=== PATIENT | female | born 1960 ===

== ENCOUNTER 2017-08-08 13:18 | Inpatient (IN) | payer MEDICAID ==
[2017-08-08 13:23] VITALS: BMI 44.5
[2017-08-08] MEDS ORDERED: Albuterol-Ipratrop 3 mg / 0.5 (3 ml) UD ONE ×2 (13:40→20:28)
[2017-08-08] MEDS ORDERED: Albuterol-Ipratrop 3 mg / 0.5 (3 ml) UD IH STA (13:43)
[2017-08-08 14:10] LABS: BASO % 0.6 % (0.0-2.0); EOS # 0.1 K/uL (0.0-0.7); EOS % 1.8 % (0.0-4.0); HEMATOCRIT 39.8 % (34.0-47.0); LYMPH % 31.4 % (20.0-40.0); MEAN CELL VOLUME 82.5 fL (81.0-99.0); MEAN CORPUSCULAR HEMOGLOBIN 27.2 pg (27.0-31.0); MEAN PLATELET VOLUME 9.7 fL (7.2-11.7); MONO # 0.4 K/uL (0.0-0.8); MONO % 5.9 % (0.0-10.0); NRBC % 0.1 % (0.0-2.0); RED CELL DISTRIBUTION WIDTH 13.8 % (11.5-14.5); WHITE BLOOD COUNT 6.3 K/uL (4.8-10.8)
[2017-08-08 14:18] LABS: ABG MECHANICAL RATE 14; ARTERIAL BLOOD GAS MODE BiPAP; DRAW SITE RRA
[2017-08-08 14:23] LABS: ALB/GLOB RATIO 1.1 (1.0-2.1); ALKALINE PHOSPHATASE 131 U/L (38-126); ALT/SGPT 80 U/L (9-52); AST/SGOT 27 U/L (14-36); BILIRUBIN,TOTAL 0.7 mg/dL (0.2-1.3); BLOOD UREA NITROGEN 16 mg/dL (7-17); CALCIUM 8.6 mg/dl (8.6-10.4); CARBON DIOXIDE 26 mmol/L (22-30); CHLORIDE 108 mmol/L (98-107); GFR AFRICAN-AMERICAN > 60; GLUCOSE,RANDOM 141 mg/dL (65-105); POTASSIUM 3.2 mmol/L (3.6-5.2); SODIUM 144 mmol/L (132-148); TOTAL PROTEIN 7.5 g/dL (6.3-8.3)
[2017-08-08] MEDS ORDERED: Lactated Ringer's 1,000 ML IVB STA (14:37)
--- NOTE | 2017-08-08 15:02 | RAD ---
PROCEDURE: CHEST RADIOGRAPH, 1 VIEW HISTORY: SOB COMPARISON: Comparison is made to 10/22/2011 FINDINGS: LUNGS: He bibasilar opacities are noted may represent atelectasis. The assessment is suboptimal due to poor inspiratory effort. PLEURA: No pneumothorax or pleural fluid seen. CARDIOVASCULAR: Normal. OSSEOUS STRUCTURES: No significant abnormalities. VISUALIZED UPPER ABDOMEN: Normal. OTHER FINDINGS: None. IMPRESSION: Bibasilar opacities may represent atelectasis.
[2017-08-08] MEDS ORDERED: Lactated Ringer's 1,000 ML ONE (15:29)
--- NOTE | 2017-08-08 15:29 | C.PDOC ---
History Of Present Illness Pt was BIBEMS due to respiratory distress. She was placed on C-PAP and given Duonebs, Solumedrol, Mg and Terbutaline en route. Time Seen by Provider: 08/08/17 13:42 Chief Complaint (Nursing): Shortness Of Breath History Per: Patient, EMS History/Exam Limitations: clinical condition Onset/Duration Of Symptoms: Days (few) Current Symptoms Are (Timing): Worse Current Respiratory Medications: See Home Med List Severity: Severe Associated Symptoms: Productive Cough Reports Recently: Treated By A Physician, Hospitalized Additional History Per: Prior Records Past Medical History Reviewed: Historical Data, Nursing Documentation, Vital Signs Vital Signs: Last Vital Signs Temp 98.8 F 08/08/17 13:23 Pulse 101 H 08/08/17 13:23 Resp 32 H 08/08/17 13:41 BP 151/72 H 08/08/17 13:23 Pulse Ox 97 08/08/17 13:41 - Medical History PMH: Anemia, Anxiety, Arthritis (R-L knee.), Asthma, Atrial Fibrillation, Bronchitis, Cardia Arrhythmia, COPD, Depression, Diverticulitis, Gastritis ( ulcer), GERD, HTN, Pneumonia, Rheumatoid Arthritis Surgical History: Cholecystectomy, (x3) - [facility] Procedures COLONOSCOPY (01/14/15) IMMOBILIZ/WOUND ATTN NEC (09/22/13) INJECT/INFUSE NEC (03/22/14) INTRODUCE OF OTH THERAP SUBST INTO RESP TRACT, VIA OPENING (12/28/15) NEBULIZER THERAPY (01/18/14) Family History: States: Unknown Family Hx - Social History Hx Tobacco Use: Yes Hx Alcohol Use: No Hx Substance Use: No - Immunization History Hx Tetanus Toxoid Vaccination: Yes Hx Influenza Vaccination: Yes Hx Pneumococcal Vaccination: Yes Review Of Systems Constitutional: Positive for: Fever (?) Cardiovascular: Positive for: Chest Pain Respiratory: Positive for: Cough, Shortness of Breath, Sputum, Wheezing. Negative for: Hemoptysis Gastrointestinal: Negative for: Vomiting, Abdominal Pain Musculoskeletal: Negative for: Neck Pain Skin: Negative for: Rash Neurological: Negative for: Weakness, Numbness Physical Exam - Physical Exam Appears: In Acute Distress Skin: Normal Color, Warm, Dry, No Rash Head: Atraumatic, Normacephalic Eye(s): bilateral: PERRL, EOMI Neck: Normal ROM, Supple Cardiovascular: Rhythm Regular Respiratory: Wheezing Gastrointestinal/Abdominal: Soft, No Tenderness Extremity: Normal ROM, No Pedal Edema, No Calf Tenderness Neurological/Psych: Oriented x3, Normal Speech, Normal Motor, Normal Sensation ED Course And Treatment - Laboratory Results Result Diagrams: 08/08/17 14:04 08/08/17 14:04 Lab Interpretation: No Acute Changes ECG: Interpreted By Me, Viewed By Me ECG Rhythm: Sinus Rhythm, Nonspecific Changes ECG Interpretation: No Acute Changes Rate From EC O2 Sat by Pulse Oximetry: 97 Pulse Ox Interpretation: Normal - Radiology CXR: Viewed By Me, Read By Radiologist CXR Interpretation: Yes: No Acute Disease Progress - Interventions Interventions:: Observation, Intravenous fluid, Oxygen - Medications Administered Inhaled nebulized: Anticholinergic, Beta-2 agonist - Data Reviewed Data Reviewed: Lab, Diagnostic imaging, EKG, Old records - Patient Status Patient status: Partially improved - Critical Care Citical Care: Excluding Proc Time Critical Care Time: 45 minutes - Continuity of Care Discussed patient case with:: Patient, ED Nurse, On-call PMD-pt unassigned - Patient Plan Patient Plan: Admission Disposition Discussed With : Elizabeth Arredondo Comment: She accepted pt on hospitalist service. Doctor Will See Patient In The: Hospital Counseled Patient/Family Regarding: Studies Performed, Diagnosis, Smoking Cessation - Disposition Disposition: HOSPITALIZED Disposition Time: 15:32 Condition: FAIR - Clinical Impression Clinical Impression: COPD exacerbation
[2017-08-08] MEDS ORDERED: Potassium Chloride 20 mEq ER Tab PO STA (16:49)
[2017-08-08] MEDS ORDERED: MethylPREDNISolone 40 mg Vial IVP STA (16:49)
[2017-08-08 16:58] LABS: RBC URINE 4 /hpf (0-3); URINE BACTERIA RARE (<OCC); URINE BILIRUBIN NEGATIVE (NEGATIVE); URINE BLOOD NEGATIVE (NEGATIVE); URINE COLOR Yellow (YELLOW); URINE GLUCOSE (UA) 1+ mg/dL (Normal); URINE KETONE NEGATIVE (NEGATIVE); URINE LEUKOCYTE ESTERASE NEG Leu/uL (Negative); URINE PROTEIN NEGATIVE (NEGATIVE); URINE UROBILINOGEN NORMAL mg/dL (0.2-1.0); WBC URINE 4 /hpf (0-5)
--- NOTE | 2017-08-08 17:16 | CP.PCM.HP ---
<Mireille Coy - Last Filed: 08/08/17 17:05> History of Present Illness - History of Present Illness History of Present Illness: CC: "I feel like I can't breath" HPI: Patient is a 56 year old female with PMHx of anxiety, COPD, migraines, arthritis and depression presenting for shortness of breath, wheezing and coughing for the past 4-5 days, worsening today. Patient reports associated chest tightness. Patient also has bilateral knee pain. She is very concerned about getting percocet for this. Patient says she takes percocet at home. Patient was admitted to [facility] at the end of June twice. She was discharged with prenidsone, Omnicef and zithromax for 7 days. Patient finished these medications and is now feeling worse. Patient says she has been itnubated 5 times in the past, once in the past year. Patient denies fever, chills, chest pain, palpitations, abdominal pain, nausea, vomiting, diarrhea, constipation, dysuria. PMD: none (patient was discharged from her PMD's care) PMHx: as above PSHx: Left knee surgery, 3 C sections, cholecystectomy, ovarian cystectomy, colonoscopy and endoscopy in 2014 Social Hx: quit tobacco 4 days before which she smoked 1/3 ppd for over 30 years , denies ETOH, denies drug use, lives alone, on disability Family Hx: reviewed, no findings relevant to current condition Allergies:Cipro and PCN - itchiness Present on Admission - Present on Admission Any Indicators Present on Admission: No Review of Systems - Constitutional Constitutional: absent: Chills, Fever - EENT Eyes: absent: Blurred Vision Ears: absent: Dizziness - Cardiovascular Cardiovascular: Dyspnea on Exertion. absent: Chest Pain, Palpitations - Respiratory Respiratory: Cough, Dyspnea, Wheezing - Gastrointestinal Gastrointestinal: absent: Abdominal Pain, Constipation, Diarrhea, Nausea, Vomiting - Genitourinary Genitourinary: absent: Dysuria - Integumentary Integumentary: absent: Dry Skin - Neurological Neurological: absent: Dizziness, Headaches - Psychiatric Psychiatric: Anxiety - Endocrine Endocrine: absent: Fatigue, Palpitations - Hematologic/Lymphatic Hematologic: absent: Easy Bleeding, Easy Bruising Past Patient History - Tetanus Immunizations Tetanus Immunization: Unknown - Past Medical History & Family History Past Medical History?: Yes Past Family History: Reviewed and not pertinent - Past Social History Smoking Status: Light Smoker < 10 Cigarettes Daily Occupation: [employer] Alcohol: None Drugs: Denies Home Situation {Lives}: Alone - CARDIAC Hx Atrial Fibrillation: Yes Hx Cardia Arrhythmia: Yes Hx Hypertension: Yes - PULMONARY Hx Asthma: Yes Hx Bronchitis: Yes Hx Chronic Obstructive Pulmonary Disease (COPD): Yes Hx Pneumonia: Yes - NEUROLOGICAL Hx Neurological Disorder: No - HEENT Hx HEENT Problems: No - RENAL Hx Chronic Kidney Disease: No - ENDOCRINE/METABOLIC Hx Endocrine Disorders: No - HEMATOLOGICAL/ONCOLOGICAL Hx Anemia: Yes - INTEGUMENTARY Hx Dermatological Problems: No - MUSCULOSKELETAL/RHEUMATOLOGICAL Hx Arthritis: Yes (R-L knee.) Hx Rheumatoid Arthritis: Yes - GASTROINTESTINAL Hx Diverticulitis: Yes Hx Gastritis: Yes (ulcer) - GENITOURINARY/GYNECOLOGICAL Hx Genitourinary Disorders: No - PSYCHIATRIC Hx Anxiety: Yes Hx Depression: Yes Hx Substance Use: No - SURGICAL HISTORY Hx Cholecystectomy: Yes - ANESTHESIA Hx Anesthesia: Yes Hx Anesthesia Reactions: No Hx Malignant Hyperthermia: No Meds Allergies/Adverse Reactions: Allergies Allergy/AdvReac Type Severity Reaction Status Date / Time ciprofloxacin [From Cipro] Allergy RASH Verified 07/19/17 16:36 ciprofloxacin HCl Allergy RASH Verified 07/19/17 16:36 [From Cipro] Penicillins Allergy RASH Verified 07/19/17 16:36 Physical Exam - Constitutional Appears: Non-toxic, No Acute Distress - Head Exam Head Exam: NORMAL INSPECTION - Eye Exam Eye Exam: EOMI - ENT Exam ENT Exam: Mucous Membranes Moist - Respiratory Exam Respiratory Exam: Wheezes, NORMAL BREATHING PATTERN. absent: Clear to Auscultation Bilateral, Rales, Rhonchi Additional comments: on BiPAP - Cardiovascular Exam Cardiovascular Exam: REGULAR RHYTHM, +S1, +S2. absent: Gallop, Rubs, Systolic Murmur - GI/Abdominal Exam GI & Abdominal Exam: Normal Bowel Sounds, Soft. absent: Distended, Firm, Tenderness - Extremities Exam Extremities exam: Negative for: pedal edema - Neurological Exam Neurological exam: Alert, Oriented x3 - Psychiatric Exam Psychiatric exam: Normal Affect, Normal Mood - Skin Skin Exam: Normal Color, Warm Results - Vital Signs Recent Vital Signs: Last Vital Signs Temp 98.8 F 08/08/17 13:23 Pulse 89 08/08/17 16:14 Resp 18 08/08/17 16:14 BP 136/76 08/08/17 16:14 Pulse Ox 100 08/08/17 16:14 - Labs Result Diagrams: 08/08/17 14:04 08/08/17 14:04 Labs: Laboratory Results - last 24 hr 08/08/17 08/08/17 08/08/17 14:04 14:04 14:15 WBC 6.3 RBC 4.83 Hgb 13.1 Hct 39.8 MCV 82.5 MCH 27.2 MCHC 33.0 RDW 13.8 Plt Count 121 L MPV 9.7 Neut % (Auto) 60.3 Lymph % (Auto) 31.4 [place] % (Auto) 5.9 Eos % (Auto) 1.8 Baso % (Auto) 0.6 Neut # 3.8 Lymph # 2.0 [place] # 0.4 Eos # 0.1 Baso # 0.0 Differential Comment Puncture Site Rra pCO2 35 pO2 106 H HCO3 25.0 ABG pH 7.44 ABG Total CO2 24.9 ABG O2 Saturation 99.5 H ABG Base Excess 0.1 Ramon Test Na ABG Potassium 3.0 L A-a O2 Difference 135.0 Respiratory Index 1.3 Glucose 158 H Lactate 1.5 Vent Mode Bipap Mechanical Rate 14 FiO2 40.0 Inspiratory BiPAP 14 Expiratory BiPAP 7 Sodium 144 144.0 Potassium 3.2 L Chloride 108 H 111.0 H Carbon Dioxide 26 Anion Gap 13 BUN 16 Creatinine 0.6 L Est GFR ( Amer) > 60 Est GFR (Non-Af Amer) > 60 Random Glucose 141 H Calcium 8.6 Total Bilirubin 0.7 AST 27 ALT 80 H Alkaline Phosphatase 131 H D Troponin I < 0.0120 NT-Pro-B Natriuret Pep 63.9 Total Protein 7.5 Albumin 3.9 Globulin 3.6 Albumin/Globulin Ratio 1.1 Arterial Blood Potassium 3.0 L Urine Color Urine Clarity Urine pH Ur Specific [place] Urine Protein Urine Glucose (UA) Urine Ketones Urine Blood Urine Nitrate Urine Bilirubin Urine Urobilinogen Ur Leukocyte Esterase Urine WBC (Auto) Urine RBC (Auto) Ur Squamous Epith Cells Urine Bacteria Urine Opiates Screen Urine Methadone Screen Ur Barbiturates Screen Ur Phencyclidine Scrn Ur Amphetamines Screen U Benzodiazepines Scrn U Oth Cocaine Metabols U Cannabinoids Screen 08/08/17 08/08/17 16:39 16:39 WBC RBC Hgb Hct MCV MCH MCHC RDW Plt Count MPV Neut % (Auto) Lymph % (Auto) [place] % (Auto) Eos % (Auto) Baso % (Auto) Neut # Lymph # [place] # Eos # Baso # Differential Comment Puncture Site pCO2 pO2 HCO3 ABG pH ABG Total CO2 ABG O2 Saturation ABG Base Excess Ramon Test ABG Potassium A-a O2 Difference Respiratory Index Glucose Lactate Vent Mode Mechanical Rate FiO2 Inspiratory BiPAP Expiratory BiPAP Sodium Potassium Chloride Carbon Dioxide Anion Gap BUN Creatinine Est GFR ( Amer) Est GFR (Non-Af Amer) Random Glucose Calcium Total Bilirubin AST ALT Alkaline Phosphatase Troponin I NT-Pro-B Natriuret Pep Total Protein Albumin Globulin Albumin/Globulin Ratio Arterial Blood Potassium Urine Color Yellow Urine Clarity Hazy Urine pH 5.0 Ur Specific [place] 1.026 Urine Protein Negative Urine Glucose (UA) 1+ Urine Ketones Negative Urine Blood Negative Urine Nitrate Negative Urine Bilirubin Negative Urine Urobilinogen Normal Ur Leukocyte Esterase Neg Urine WBC (Auto) 4 Urine RBC (Auto) 4 H Ur Squamous Epith Cells 13 H Urine Bacteria Rare Urine Opiates Screen Positive H Urine Methadone Screen Negative Ur Barbiturates Screen Negative Ur Phencyclidine Scrn Negative Ur Amphetamines Screen Negative U Benzodiazepines Scrn Positive U Oth Cocaine Metabols Negative U Cannabinoids Screen Negative Assessment & Plan - Assessment and Plan (Free Text) Assessment: COPD exacerbation CXR 08/08/17 - bibasilar opacities, possible atelectasis (please see full report ) Solumedrol 40mg IvP Q12 Advair 250/50 INH BID Singulair 10mg PO HS Duonebs 3ml INH RQ4 Pulmonology consult - Dr. Green - f/u recs Telemetry Pneumonia CXR 08/08/17 - bibasilar opacities, possible atelectasis (please see full report ) F/U blood culture F/U sputum cutlure F/U strep, mycoplasma, legionella Zithromax 500mg IVPB daily Arthritis Tramadol 25mg PO Q8 PRN pain Anxiety Cymbalta 60mg PO daily Xanax 0.25mg PO BID PRN anxiety Trazadone 50mg PO HS Seroquel 25mg PO HS Gabapentin 300mg PO HS Migraine Topamax 50mg PO daily Hypokalemia K 3.2 KCl 20mEq PO once F/U in AM Prophylaxis Protonix 40mg PO daily Heparin 5000U SC Q8 SCDs <Gilbert León - Last Filed: 08/08/17 18:36> Results - Vital Signs Recent Vital Signs: Last Vital Signs Temp 98.8 F 08/08/17 13:23 Pulse 89 08/08/17 16:14 Resp 18 08/08/17 16:14 BP 136/76 08/08/17 16:14 Pulse Ox 100 08/08/17 16:14 - Labs Result Diagrams: 08/08/17 14:04 08/08/17 14:04 Labs: Laboratory Results - last 24 hr 08/08/17 08/08/17 08/08/17 14:04 14:04 14:15 WBC 6.3 RBC 4.83 Hgb 13.1 Hct 39.8 MCV 82.5 MCH 27.2 MCHC 33.0 RDW 13.8 Plt Count 121 L MPV 9.7 Neut % (Auto) 60.3 Lymph % (Auto) 31.4 [place] % (Auto) 5.9 Eos % (Auto) 1.8 Baso % (Auto) 0.6 Neut # 3.8 Lymph # 2.0 [place] # 0.4 Eos # 0.1 Baso # 0.0 Differential Comment Puncture Site Rra pCO2 35 pO2 106 H HCO3 25.0 ABG pH 7.44 ABG Total CO2 24.9 ABG O2 Saturation 99.5 H ABG Base Excess 0.1 Ramon Test Na ABG Potassium 3.0 L A-a O2 Difference 135.0 Respiratory Index 1.3 Glucose 158 H Lactate 1.5 Vent Mode Bipap Mechanical Rate 14 FiO2 40.0 Inspiratory BiPAP 14 Expiratory BiPAP 7 Sodium 144 144.0 Potassium 3.2 L Chloride 108 H 111.0 H Carbon Dioxide 26 Anion Gap 13 BUN 16 Creatinine 0.6 L Est GFR ( Amer) > 60 Est GFR (Non-Af Amer) > 60 Random Glucose 141 H Calcium 8.6 Total Bilirubin 0.7 AST 27 ALT 80 H Alkaline Phosphatase 131 H D Troponin I < 0.0120 NT-Pro-B Natriuret Pep 63.9 Total Protein 7.5 Albumin 3.9 Globulin 3.6 Albumin/Globulin Ratio 1.1 Arterial Blood Potassium 3.0 L Urine Color Urine Clarity Urine pH Ur Specific [place] Urine Protein Urine Glucose (UA) Urine Ketones Urine Blood Urine Nitrate Urine Bilirubin Urine Urobilinogen Ur Leukocyte Esterase Urine WBC (Auto) Urine RBC (Auto) Ur Squamous Epith Cells Urine Bacteria Urine Opiates Screen Urine Methadone Screen Ur Barbiturates Screen Ur Phencyclidine Scrn Ur Amphetamines Screen U Benzodiazepines Scrn U Oth Cocaine Metabols U Cannabinoids Screen Ur L.pneumophila Ag 08/08/17 08/08/17 08/08/17 16:39 16:39 17:26 WBC RBC Hgb Hct MCV MCH MCHC RDW Plt Count MPV Neut % (Auto) Lymph % (Auto) [place] % (Auto) Eos % (Auto) Baso % (Auto) Neut # Lymph # [place] # Eos # Baso # Differential Comment Puncture Site pCO2 pO2 HCO3 ABG pH ABG Total CO2 ABG O2 Saturation ABG Base Excess [place]on Test ABG Potassium A-a O2 Difference Respiratory Index Glucose Lactate Vent Mode Mechanical Rate FiO2 Inspiratory BiPAP Expiratory BiPAP Sodium Potassium Chloride Carbon Dioxide Anion Gap BUN Creatinine Est GFR ( Amer) Est GFR (Non-Af Amer) Random Glucose Calcium Total Bilirubin AST ALT Alkaline Phosphatase Troponin I NT-Pro-B Natriuret Pep Total Protein Albumin Globulin Albumin/Globulin Ratio Arterial Blood Potassium Urine Color Yellow Urine Clarity Hazy Urine pH 5.0 Ur Specific [place] 1.026 Urine Protein Negative Urine Glucose (UA) 1+ Urine Ketones Negative Urine Blood Negative Urine Nitrate Negative Urine Bilirubin Negative Urine Urobilinogen Normal Ur Leukocyte Esterase Neg Urine WBC (Auto) 4 Urine RBC (Auto) 4 H Ur Squamous Epith Cells 13 H Urine Bacteria Rare Urine Opiates Screen Positive H Urine Methadone Screen Negative Ur Barbiturates Screen Negative Ur Phencyclidine Scrn Negative Ur Amphetamines Screen Negative U Benzodiazepines Scrn Positive U Oth Cocaine Metabols Negative U Cannabinoids Screen Negative Ur L.pneumophila Ag Negative Attending/Attestation - Attestation I have personally seen and examined this patient.: Yes I have fully participated in the care of the patient.: Yes I have reviewed all pertinent clinical information: Yes Notes (Text): This is a 56 year old female with PMHx of anxiety, COPD, migraines, arthritis and depression presenting for shortness of breath, wheezing and coughing for the past 4-5 days.Recent hospitalization for Exacerbation of Asthma at [facility].D/c on oral antibiotics.Patient state that she was intubated in the past total 5 times.Last one last year.Stae that she stop smoking on exam she is on BIPAP,talking in full sentence.Not in distress,noted cough with wheezing.chest x ray and abg noted Plan-admit her to telemetry IV solumedrol,zithromax and duoneb continue home meds Pulmonary consult 08/08/17 18:35
[2017-08-08] MEDS ORDERED: Potassium Chloride 20 mEq ER Tab PO ONE (17:22)
[2017-08-08] MEDS ORDERED: MethylPREDNISolone 40 mg Vial ONE ×2 (17:23→21:06)
[2017-08-08] MEDS ORDERED: Pantoprazole 40 mg EC Tab PO ONE (17:23)
[2017-08-08] MEDS: Pantoprazole 40 mg EC Tab PO SCH (17:27)
[2017-08-08] MEDS: Tramadol 25 mg PO PRN (17:48)
[2017-08-08] MEDS: Azithromycin 500 MG in Sodium Chloride 0.9% 250 ML IVPB SCH (17:55)
[2017-08-08] MEDS ORDERED: DiphenhydrAMINE 50 mg/ml Inj ONE (20:27)
[2017-08-08] MEDS: Fluticasone-Salmeterol 250-50mcg Diskus INH SCH (20:30)
[2017-08-08] MEDS: Albuterol-Ipratrop 3 mg / 0.5 (3 ml) UD INH SCH ×2 (20:30→23:55)
[2017-08-08] MEDS: MethylPREDNISolone 40 mg Vial IVP SCH (21:25)
[2017-08-09] MEDS ORDERED: DiphenhydrAMINE 50 mg/ml Inj IVP STA (01:09)
[2017-08-09] MEDS: Tramadol 25 mg PO PRN (02:15)
[2017-08-09] MEDS: Albuterol-Ipratrop 3 mg / 0.5 (3 ml) UD INH SCH ×6 (04:50→23:26)
[2017-08-09 06:36] LABS: BASO % 0.4 % (0.0-2.0); HEMATOCRIT 35.9 % (34.0-47.0); LYMPH # 0.4 K/uL (1.0-4.3); LYMPH % 7.7 % (20.0-40.0); MEAN CELL VOLUME 82.5 fL (81.0-99.0); MEAN CORPUSCULAR HEMOGLOBIN 27.4 pg (27.0-31.0); MEAN CORPUSCULAR HGB CONC 33.2 g/dL (33.0-37.0); MEAN PLATELET VOLUME 9.1 fL (7.2-11.7); MONO # 0.1 K/uL (0.0-0.8); MONO % 2.5 % (0.0-10.0); PLATELET COUNT 102 K/uL (130-400); RED CELL DISTRIBUTION WIDTH 13.7 % (11.5-14.5); WHITE BLOOD COUNT 5.3 K/uL (4.8-10.8)
[2017-08-09 07:05] LABS: ALB/GLOB RATIO 1.1 (1.0-2.1); ALKALINE PHOSPHATASE 110 U/L (38-126); ALT/SGPT 60 U/L (9-52); AST/SGOT 19 U/L (14-36); BILIRUBIN,TOTAL 0.4 mg/dL (0.2-1.3); BLOOD UREA NITROGEN 15 mg/dL (7-17); CALCIUM 8.3 mg/dl (8.6-10.4); CARBON DIOXIDE 22 mmol/L (22-30); CHLORIDE 109 mmol/L (98-107); GFR AFRICAN-AMERICAN > 60; GLUCOSE,RANDOM 216 mg/dL (65-105); POTASSIUM 3.8 mmol/L (3.6-5.2); SODIUM 143 mmol/L (132-148); TOTAL PROTEIN 6.6 g/dL (6.3-8.3)
[2017-08-09] MEDS: Fluticasone-Salmeterol 250-50mcg Diskus INH SCH ×2 (07:40→20:16)
[2017-08-09 08:26] LABS: NEUTROPHIL 84 % (50-75); TOTAL CELLS COUNTED 100
[2017-08-09] MEDS ORDERED: Albuterol-Ipratrop 3 mg / 0.5 (3 ml) UD INH PRN (09:07)
[2017-08-09] MEDS: MethylPREDNISolone 40 mg Vial IVP SCH ×3 (09:39→21:18)
[2017-08-09] MEDS: Pantoprazole 40 mg EC Tab PO SCH (09:39)
[2017-08-09] MEDS: Bacitracin Ointment 30 GM TUBE TOP SCH ×3 (11:37→18:03)
[2017-08-09] MEDS: (Novolin R) Insulin Human Regular 100 units/ml vial SC SCH ×3 (11:40→21:19)
--- NOTE | 2017-08-09 12:29 | CP.PCM.CON ---
History of Present Illness - History of Present Illness History of Present Illness: Reason for consultation: COPD Shadia Sanchez is a 56 y/o F with a PMHx of COPD, asthma, sleep apnea, arthritis , migraines, and anxiety who presented with shortness of breath. Patient was recently hospitalized in [place] and was home ten days before she started to experience SOB again. Patient is on 2-3 Liters of home oxygen. Patient says she has been having trouble getting her maintenance medications for COPD and was dismissed from PMD. Patient has been intubated 5x in the past, most recently in June 2016. Patient smokes 1/3 pack a day and has been smoking for over 25 years. Patient is allergic to cats and dust. She has a dog at home. Patient seen and examined at bedside. Patient using oxygen. Patient is able to speak in full sentences. Patient reports she is having shortness of breath, chest tightness and congestion. She reports non-bloody productive cough. Patient reports migraine headache that is chronic. Patient denies any fevers, nausea, vomiting, abdominal pain, constipation, diarrhea or dysuria. Allergies: Cipro and Penicillin - rash PMHx: COPD, asthma, sleep apnea, arthritis, migraines, anxiety, pneumonia PSHx: ovarian cystectomy, knee surgery, cholecystectomy, 3x SocialHx: 1/3 pack a day for greater than 25 years, denies alcohol and illicit drug use. Lives at home by herself. Review of Systems - Review of Systems Systems not reviewed;Unavailable: Unstable Vital Signs - Constitutional Constitutional: Chills, Headache - Cardiovascular Cardiovascular: absent: Chest Pain - Respiratory Respiratory: Cough, Wheezing, Chest Congestion - Gastrointestinal Gastrointestinal: absent: Abdominal Pain, Constipation, Diarrhea - Genitourinary Genitourinary: absent: Difficulty Urinating, Dysuria - Neurological Neurological: Dizziness, Headaches. absent: Behavioral Changes, Confusion Past Patient History - Tetanus Immunizations Tetanus Immunization: Unknown - Past Medical History & Family History Past Medical History?: Yes - Past Social History Smoking Status: Light Smoker < 10 Cigarettes Daily - CARDIAC Hx Atrial Fibrillation: Yes Hx Cardia Arrhythmia: Yes Hx Hypertension: Yes - PULMONARY Hx Asthma: Yes Hx Bronchitis: Yes Hx Chronic Obstructive Pulmonary Disease (COPD): Yes Hx Pneumonia: Yes - NEUROLOGICAL Hx Migraine: Yes - HEENT Hx HEENT Problems: No - RENAL Hx Chronic Kidney Disease: No - ENDOCRINE/METABOLIC Hx Endocrine Disorders: No - HEMATOLOGICAL/ONCOLOGICAL Hx Anemia: Yes - INTEGUMENTARY Hx Dermatological Problems: No - MUSCULOSKELETAL/RHEUMATOLOGICAL Hx Arthritis: Yes (R-L knee.) Hx Falls: No Hx Rheumatoid Arthritis: Yes - GASTROINTESTINAL Hx Diverticulitis: Yes Hx Gastritis: Yes (ulcer) - GENITOURINARY/GYNECOLOGICAL Hx Genitourinary Disorders: No - PSYCHIATRIC Hx Anxiety: Yes Hx Depression: Yes Hx Substance Use: No - SURGICAL HISTORY Hx Section: Yes Hx Cholecystectomy: Yes Hx Joint Replacement: Yes (left knee replacement) - ANESTHESIA Hx Anesthesia: Yes Hx Anesthesia Reactions: No Hx Malignant Hyperthermia: No Meds Allergies/Adverse Reactions: Allergies Allergy/AdvReac Type Severity Reaction Status Date / Time ciprofloxacin [From Cipro] Allergy RASH Verified 07/19/17 16:36 ciprofloxacin HCl Allergy RASH Verified 07/19/17 16:36 [From Cipro] Penicillins Allergy RASH Verified 07/19/17 16:36 - Medications Medications: Current Medications Albuterol/Ipratropium (Duoneb 3 Mg/0.5 Mg (3 Ml) Ud) 3 ml INH RQ4 [facility] Last Admin: 08/09/17 07:32 Dose: 3 ml Albuterol/Ipratropium (Duoneb 3 Mg/0.5 Mg (3 Ml) Ud) 3 ml INH RQ2 PRN PRN Reason: Shortness of Breath Alprazolam (Xanax) 0.25 mg PO BID PRN PRN Reason: Anxiety Stop: 08/15/17 16:50 Last Admin: 08/09/17 09:39 Dose: 0.25 mg Bacitracin (Bacitracin) 1 gm TOP TID [facility] Last Admin: 08/09/17 11:37 Dose: 1 applic Duloxetine HCl (Cymbalta) 60 mg PO DAILY [facility] Last Admin: 08/09/17 09:41 Dose: 60 mg Gabapentin (Neurontin) 300 mg PO HS [facility] Last Admin: 08/08/17 21:15 Dose: 300 mg Heparin Sodium (Porcine) (Heparin) 5,000 units SC Q8 [facility] Last Admin: 08/09/17 06:34 Dose: 5,000 units Azithromycin 500 mg/ Sodium (Chloride) 250 mls @ 250 mls/hr IVPB Q24H [facility] Last Admin: 08/08/17 17:55 Dose: 250 mls/hr Insulin Human Regular (Novolin R) 0 unit SC ACHS [facility] PRN Reason: Protocol Last Admin: 08/09/17 11:40 Dose: 3 unit Methylprednisolone (Solu-Medrol) 40 mg IVP Q8 [facility] Montelukast Sodium (Singulair) 10 mg PO HS [facility] Last Admin: 08/08/17 21:14 Dose: 10 mg Nicotine (Nicoderm Cq) 1 patch TD DAILY [facility] Last Admin: 08/09/17 09:38 Dose: 1 patch Pantoprazole Sodium (Protonix Ec Tab) 40 mg PO DAILY [facility] Last Admin: 08/09/17 09:39 Dose: 40 mg Quetiapine Fumarate (Seroquel) 25 mg PO QPM [facility] Last Admin: 08/08/17 17:48 Dose: 25 mg Fluticasone/Salmeterol (Advair Diskus 250/50) 1 puff INH RQ12 [facility] Last Admin: 08/09/17 07:40 Dose: Not Given Topiramate (Topamax) 50 mg PO DAILY [facility] Last Admin: 08/09/17 09:43 Dose: 50 mg Tramadol HCl (Ultram) 50 mg PO TID PRN PRN Reason: Pain, moderate (4-7) Last Admin: 08/09/17 09:39 Dose: 50 mg Trazodone HCl (Desyrel) 100 mg PO HS [facility] Last Admin: 08/08/17 21:24 Dose: 100 mg Results - Vital Signs Recent Vital Signs: Last Vital Signs Temp 97.8 F 08/09/17 08:00 Pulse 99 H 08/09/17 10:51 Resp 13 08/09/17 08:00 BP 123/82 08/09/17 08:00 Pulse Ox 94 L 08/09/17 08:00 - Labs Result Diagrams: 08/09/17 06:26 08/09/17 06:26 Labs: Laboratory Results - last 24 hr 08/08/17 08/08/17 08/08/17 14:04 14:04 14:15 WBC 6.3 RBC 4.83 Hgb 13.1 Hct 39.8 MCV 82.5 MCH 27.2 MCHC 33.0 RDW 13.8 Plt Count 121 L MPV 9.7 Neut % (Auto) 60.3 Lymph % (Auto) 31.4 [place] % (Auto) 5.9 Eos % (Auto) 1.8 Baso % (Auto) 0.6 Neut # 3.8 Lymph # 2.0 [place] # 0.4 Eos # 0.1 Baso # 0.0 Neutrophils % (Manual) Band Neutrophils % Lymphocytes % (Manual) Monocytes % (Manual) Differential Comment Platelet Estimate Poikilocytosis (manual Ovalocytes Puncture Site Rra pCO2 35 pO2 106 H HCO3 25.0 ABG pH 7.44 ABG Total CO2 24.9 ABG O2 Saturation 99.5 H ABG Base Excess 0.1 Ramon Test Na ABG Potassium 3.0 L A-a O2 Difference 135.0 Respiratory Index 1.3 Glucose 158 H Lactate 1.5 Vent Mode Bipap Mechanical Rate 14 FiO2 40.0 Inspiratory BiPAP 14 Expiratory BiPAP 7 Sodium 144 144.0 Potassium 3.2 L Chloride 108 H 111.0 H Carbon Dioxide 26 Anion Gap 13 BUN 16 Creatinine 0.6 L Est GFR ( Amer) > 60 Est GFR (Non-Af Amer) > 60 POC Glucose (mg/dL) Random Glucose 141 H Calcium 8.6 Magnesium Total Bilirubin 0.7 AST 27 ALT 80 H Alkaline Phosphatase 131 H D Troponin I < 0.0120 NT-Pro-B Natriuret Pep 63.9 Total Protein 7.5 Albumin 3.9 Globulin 3.6 Albumin/Globulin Ratio 1.1 Arterial Blood Potassium 3.0 L Urine Color Urine Clarity Urine pH Ur Specific [place] Urine Protein Urine Glucose (UA) Urine Ketones Urine Blood Urine Nitrate Urine Bilirubin Urine Urobilinogen Ur Leukocyte Esterase Urine WBC (Auto) Urine RBC (Auto) Ur Squamous Epith Cells Urine Bacteria Urine Opiates Screen Urine Methadone Screen Ur Barbiturates Screen Ur Phencyclidine Scrn Ur Amphetamines Screen U Benzodiazepines Scrn U Oth Cocaine Metabols U Cannabinoids Screen Ur L.pneumophila Ag 08/08/17 08/08/17 08/08/17 16:39 16:39 17:26 WBC RBC Hgb Hct MCV MCH MCHC RDW Plt Count MPV Neut % (Auto) Lymph % (Auto) [place] % (Auto) Eos % (Auto) Baso % (Auto) Neut # Lymph # [place] # Eos # Baso # Neutrophils % (Manual) Band Neutrophils % Lymphocytes % (Manual) Monocytes % (Manual) Differential Comment Platelet Estimate Poikilocytosis (manual Ovalocytes Puncture Site pCO2 pO2 HCO3 ABG pH ABG Total CO2 ABG O2 Saturation ABG Base Excess Ramon Test ABG Potassium A-a O2 Difference Respiratory Index Glucose Lactate Vent Mode Mechanical Rate FiO2 Inspiratory BiPAP Expiratory BiPAP Sodium Potassium Chloride Carbon Dioxide Anion Gap BUN Creatinine Est GFR ( Amer) Est GFR (Non-Af Amer) POC Glucose (mg/dL) Random Glucose Calcium Magnesium Total Bilirubin AST ALT Alkaline Phosphatase Troponin I NT-Pro-B Natriuret Pep Total Protein Albumin Globulin Albumin/Globulin Ratio Arterial Blood Potassium Urine Color Yellow Urine Clarity Hazy Urine pH 5.0 Ur Specific [place] 1.026 Urine Protein Negative Urine Glucose (UA) 1+ Urine Ketones Negative Urine Blood Negative Urine Nitrate Negative Urine Bilirubin Negative Urine Urobilinogen Normal Ur Leukocyte Esterase Neg Urine WBC (Auto) 4 Urine RBC (Auto) 4 H Ur Squamous Epith Cells 13 H Urine Bacteria Rare Urine Opiates Screen Positive H Urine Methadone Screen Negative Ur Barbiturates Screen Negative Ur Phencyclidine Scrn Negative Ur Amphetamines Screen Negative U Benzodiazepines Scrn Positive U Oth Cocaine Metabols Negative U Cannabinoids Screen Negative Ur L.pneumophila Ag Negative 08/08/17 08/09/17 08/09/17 18:13 06:26 06:26 WBC 5.3 RBC 4.35 Hgb 11.9 Hct 35.9 MCV 82.5 MCH 27.4 MCHC 33.2 RDW 13.7 Plt Count 102 L MPV 9.1 Neut % (Auto) 89.4 H Lymph % (Auto) 7.7 L [place] % (Auto) 2.5 Eos % (Auto) 0.0 Baso % (Auto) 0.4 Neut # 4.7 Lymph # 0.4 L [place] # 0.1 Eos # 0.0 Baso # 0.0 Neutrophils % (Manual) 84 H Band Neutrophils % 8 H Lymphocytes % (Manual) 7 L Monocytes % (Manual) 1 Differential Comment Platelet Estimate Slightly decreased L Poikilocytosis (manual Slight Ovalocytes Slight Puncture Site pCO2 pO2 HCO3 ABG pH ABG Total CO2 ABG O2 Saturation ABG Base Excess Ramon Test ABG Potassium A-a O2 Difference Respiratory Index Glucose Lactate Vent Mode Mechanical Rate FiO2 Inspiratory BiPAP Expiratory BiPAP Sodium 143 Potassium 3.8 Chloride 109 H Carbon Dioxide 22 Anion Gap 15 BUN 15 Creatinine 0.6 L Est GFR ( Amer) > 60 Est GFR (Non-Af Amer) > 60 POC Glucose (mg/dL) 287 H Random Glucose 216 H Calcium 8.3 L Magnesium 2.0 Total Bilirubin 0.4 AST 19 ALT 60 H D Alkaline Phosphatase 110 Troponin I NT-Pro-B Natriuret Pep Total Protein 6.6 Albumin 3.5 Globulin 3.1 Albumin/Globulin Ratio 1.1 Arterial Blood Potassium Urine Color Urine Clarity Urine pH Ur Specific [place] Urine Protein Urine Glucose (UA) Urine Ketones Urine Blood Urine Nitrate Urine Bilirubin Urine Urobilinogen Ur Leukocyte Esterase Urine WBC (Auto) Urine RBC (Auto) Ur Squamous Epith Cells Urine Bacteria Urine Opiates Screen Urine Methadone Screen Ur Barbiturates Screen Ur Phencyclidine Scrn Ur Amphetamines Screen U Benzodiazepines Scrn U Oth Cocaine Metabols U Cannabinoids Screen Ur L.pneumophila Ag 08/09/17 08/09/17 09:27 11:37 WBC RBC Hgb Hct MCV MCH MCHC RDW Plt Count MPV Neut % (Auto) Lymph % (Auto) [place] % (Auto) Eos % (Auto) Baso % (Auto) Neut # Lymph # [place] # Eos # Baso # Neutrophils % (Manual) Band Neutrophils % Lymphocytes % (Manual) Monocytes % (Manual) Differential Comment Platelet Estimate Poikilocytosis (manual Ovalocytes Puncture Site pCO2 pO2 HCO3 ABG pH ABG Total CO2 ABG O2 Saturation ABG Base Excess [place]on Test ABG Potassium A-a O2 Difference Respiratory Index Glucose Lactate Vent Mode Mechanical Rate FiO2 Inspiratory BiPAP Expiratory BiPAP Sodium Potassium Chloride Carbon Dioxide Anion Gap BUN Creatinine Est GFR ( Amer) Est GFR (Non-Af Amer) POC Glucose (mg/dL) 263 H 231 H Random Glucose Calcium Magnesium Total Bilirubin AST ALT Alkaline Phosphatase Troponin I NT-Pro-B Natriuret Pep Total Protein Albumin Globulin Albumin/Globulin Ratio Arterial Blood Potassium Urine Color Urine Clarity Urine pH Ur Specific [place] Urine Protein Urine Glucose (UA) Urine Ketones Urine Blood Urine Nitrate Urine Bilirubin Urine Urobilinogen Ur Leukocyte Esterase Urine WBC (Auto) Urine RBC (Auto) Ur Squamous Epith Cells Urine Bacteria Urine Opiates Screen Urine Methadone Screen Ur Barbiturates Screen Ur Phencyclidine Scrn Ur Amphetamines Screen U Benzodiazepines Scrn U Oth Cocaine Metabols U Cannabinoids Screen Ur L.pneumophila Ag
--- NOTE | 2017-08-09 12:32 | RAD ---
HISTORY: COMPARISON: 08/08/2017. TECHNIQUE: Chest PA and lateral FINDINGS: LINES AND TUBES: None. LUNG AND PLEURA: The lungs are well inflated and clear. HEART AND MEDIASTINUM: The heart is not enlarged. The hilar and mediastinal contours are within normal limits. SKELETAL STRUCTURES: The bony structures are within normal limits for the patient's age. VISUALIZED UPPER ABDOMEN: Normal. OTHER FINDINGS: None. IMPRESSION: No active pulmonary disease.
--- NOTE | 2017-08-09 15:31 | CP.PCM.PN ---
<Hoa Landry - Last Filed: 08/09/17 15:19> Subjective - Date & Time of Evaluation Date of Evaluation: 08/09/17 Time of Evaluation: 09:00 - Subjective Subjective: Medicine Note for Hospitalist Service - Dr. Leonidas Oneil Patient was seen and examined at bedside. Patient reports she is wheezing and anxious. She is requesting pain medication to calm her breathing and nerves. Denied fever, chills, headache, chest pain, abdominal pain, n/v/d/c, or urinary symptoms. Objective - Vital Signs/Intake and Output Vital Signs (last 24 hours): Temp Pulse Resp BP Pulse Ox 98.1 F 80 20 128/66 98 08/09/17 13:52 08/09/17 13:57 08/09/17 13:52 08/09/17 13:52 08/09/17 13:52 Intake and Output: 08/09/17 08/09/17 06:59 18:59 Intake Total 480 20 Output Total 500 Balance -20 20 - Medications Medications: Current Medications Albuterol/Ipratropium (Duoneb 3 Mg/0.5 Mg (3 Ml) Ud) 3 ml INH RQ4 [facility] Last Admin: 08/09/17 07:32 Dose: 3 ml Albuterol/Ipratropium (Duoneb 3 Mg/0.5 Mg (3 Ml) Ud) 3 ml INH RQ2 PRN PRN Reason: Shortness of Breath Alprazolam (Xanax) 0.25 mg PO BID PRN PRN Reason: Anxiety Stop: 08/15/17 16:50 Last Admin: 08/09/17 09:39 Dose: 0.25 mg Bacitracin (Bacitracin) 1 gm TOP TID [facility] Last Admin: 08/09/17 14:21 Dose: 1 applic Duloxetine HCl (Cymbalta) 60 mg PO DAILY [facility] Last Admin: 08/09/17 09:41 Dose: 60 mg Gabapentin (Neurontin) 300 mg PO HS [facility] Last Admin: 08/08/17 21:15 Dose: 300 mg Heparin Sodium (Porcine) (Heparin) 5,000 units SC Q8 [facility] Last Admin: 08/09/17 14:24 Dose: 5,000 units Azithromycin 500 mg/ Sodium (Chloride) 250 mls @ 250 mls/hr IVPB Q24H [facility] Last Admin: 08/08/17 17:55 Dose: 250 mls/hr Insulin Human Regular (Novolin R) 0 unit SC ACHS [facility] PRN Reason: Protocol Last Admin: 08/09/17 11:40 Dose: 3 unit Methylprednisolone (Solu-Medrol) 40 mg IVP Q8 [facility] Last Admin: 08/09/17 14:19 Dose: 40 mg Montelukast Sodium (Singulair) 10 mg PO HS [facility] Last Admin: 08/08/17 21:14 Dose: 10 mg Nicotine (Nicoderm Cq) 1 patch TD DAILY [facility] Last Admin: 08/09/17 09:38 Dose: 1 patch Pantoprazole Sodium (Protonix Ec Tab) 40 mg PO DAILY [facility] Last Admin: 08/09/17 09:39 Dose: 40 mg Quetiapine Fumarate (Seroquel) 25 mg PO QPM [facility] Last Admin: 08/08/17 17:48 Dose: 25 mg Fluticasone/Salmeterol (Advair Diskus 250/50) 1 puff INH RQ12 [facility] Last Admin: 08/09/17 07:40 Dose: Not Given Topiramate (Topamax) 50 mg PO DAILY [facility] Last Admin: 08/09/17 09:43 Dose: 50 mg Tramadol HCl (Ultram) 50 mg PO TID PRN PRN Reason: Pain, moderate (4-7) Last Admin: 08/09/17 14:19 Dose: 50 mg Trazodone HCl (Desyrel) 100 mg PO HS [facility] Last Admin: 08/08/17 21:24 Dose: 100 mg - Labs Labs: 08/09/17 06:26 08/09/17 06:26 - Additional Findings Additional findings: - Constitutional Appears: Non-toxic, No Acute Distress - Head Exam Head Exam: NORMAL INSPECTION - Eye Exam Eye Exam: EOMI - ENT Exam ENT Exam: Mucous Membranes Moist - Respiratory Exam Respiratory Exam: Wheezes absent: Clear to Auscultation Bilateral, Rales, Rhonchi Additional comments: - Cardiovascular Exam Cardiovascular Exam: REGULAR RHYTHM, +S1, +S2. absent: Gallop, Rubs, Systolic Murmur - GI/Abdominal Exam GI & Abdominal Exam: Normal Bowel Sounds, Soft. absent: Distended, Firm, Tenderness - Extremities Exam Extremities exam: Negative for: pedal edema - Neurological Exam Neurological exam: Alert, Oriented x3 - Psychiatric Exam Psychiatric exam: Normal Affect, Normal Mood - Skin Skin Exam: Normal Color, Warm Assessment and Plan - Assessment and Plan (Free Text) Plan: COPD exacerbation Pulmonology consulted - Dr. Green - help appreciated Patient is on home oxygen 2-3L CXR 08/08/17 - bibasilar opacities, possible atelectasis (please see full report) Medications: Solumedrol 40mg IvP Q8 Advair 250/50 INH BID Singulair 10mg PO HS Duonebs 3ml INH RQ4, Q2H PRN- SOB Pneumonia CXR 08/08/17 - bibasilar opacities, possible atelectasis (please see full report) CXR PA/ Lateral 08/09/17 : No active pulmonary disease. Labs: F/U blood culture - no growth F/U sputum culture - no abnormal growth F/U strep, mycoplasma, legionella - negative Medication: Zithromax 500mg IVPB daily Arthritis Tramadol 50mg PO Q8 PRN pain Patient requested we start percocet or other pain medications. We spoke to patient especially due to her history of 5 intubations,1 within this past year, adding narcotics to her current state will lower her respiratory drive, and might lead her to become reintubated. She stated she understands this but feels the pain medication helps her breathing. Anxiety Cymbalta 60mg PO daily Xanax 0.25mg PO BID PRN anxiety Trazadone 50mg PO HS Seroquel 25mg PO HS Gabapentin 300mg PO HS Sleep Apnea Reports she does not have a CPAP Migraine Topamax 50mg PO daily Prophylaxis Protonix 40mg PO daily Heparin 5000U SC Q8, [facility] DW Frantz Perez DO, PGY-1 <Cameron Oneil - Last Filed: 08/09/17 15:52> Objective - Vital Signs/Intake and Output Vital Signs (last 24 hours): Temp Pulse Resp BP Pulse Ox 98.1 F 80 20 128/66 98 08/09/17 13:52 08/09/17 13:57 08/09/17 13:52 08/09/17 13:52 08/09/17 13:52 Intake and Output: 08/09/17 08/09/17 06:59 18:59 Intake Total 480 20 Output Total 500 Balance -20 20 - Medications Medications: Current Medications Albuterol/Ipratropium (Duoneb 3 Mg/0.5 Mg (3 Ml) Ud) 3 ml INH RQ4 [facility] Last Admin: 08/09/17 07:32 Dose: 3 ml Albuterol/Ipratropium (Duoneb 3 Mg/0.5 Mg (3 Ml) Ud) 3 ml INH RQ2 PRN PRN Reason: Shortness of Breath Alprazolam (Xanax) 0.25 mg PO BID PRN PRN Reason: Anxiety Stop: 08/15/17 16:50 Last Admin: 08/09/17 09:39 Dose: 0.25 mg Bacitracin (Bacitracin) 1 gm TOP TID [facility] Last Admin: 08/09/17 14:21 Dose: 1 applic Duloxetine HCl (Cymbalta) 60 mg PO DAILY [facility] Last Admin: 08/09/17 09:41 Dose: 60 mg Gabapentin (Neurontin) 300 mg PO HS [facility] Last Admin: 08/08/17 21:15 Dose: 300 mg Heparin Sodium (Porcine) (Heparin) 5,000 units SC Q8 [facility] Last Admin: 08/09/17 14:24 Dose: 5,000 units Azithromycin 500 mg/ Sodium (Chloride) 250 mls @ 250 mls/hr IVPB Q24H [facility] Last Admin: 08/08/17 17:55 Dose: 250 mls/hr Insulin Human Regular (Novolin R) 0 unit SC ACHS [facility] PRN Reason: Protocol Last Admin: 08/09/17 11:40 Dose: 3 unit Methylprednisolone (Solu-Medrol) 40 mg IVP Q8 [facility] Last Admin: 08/09/17 14:19 Dose: 40 mg Montelukast Sodium (Singulair) 10 mg PO HS [facility] Last Admin: 08/08/17 21:14 Dose: 10 mg Nicotine (Nicoderm Cq) 1 patch TD DAILY [facility] Last Admin: 08/09/17 09:38 Dose: 1 patch Pantoprazole Sodium (Protonix Ec Tab) 40 mg PO DAILY [facility] Last Admin: 08/09/17 09:39 Dose: 40 mg Quetiapine Fumarate (Seroquel) 25 mg PO QPM [facility] Last Admin: 08/08/17 17:48 Dose: 25 mg Fluticasone/Salmeterol (Advair Diskus 250/50) 1 puff INH RQ12 [facility] Last Admin: 08/09/17 07:40 Dose: Not Given Topiramate (Topamax) 50 mg PO DAILY [facility] Last Admin: 08/09/17 09:43 Dose: 50 mg Tramadol HCl (Ultram) 50 mg PO TID PRN PRN Reason: Pain, moderate (4-7) Last Admin: 08/09/17 14:19 Dose: 50 mg Trazodone HCl (Desyrel) 100 mg PO HS [facility] Last Admin: 08/08/17 21:24 Dose: 100 mg - Labs Labs: 08/09/17 06:26 08/09/17 06:26 Attending/Attestation - Attestation I have personally seen and examined this patient.: Yes I have fully participated in the care of the patient.: Yes I have reviewed all pertinent clinical information, including history, physical exam and plan: Yes Notes (Text): 08/09/17 15:52 Medical attending: Patient was seen and examined by me, agrees the above note by anesthesiology medical doctor. As is my first time meeting patient, reviewed the above note by anesthesiology medical doctor and agree. We also reviewed the previous notes. The patient was seen in [place] on Wednesday and it appears that the medical team with her had attempted to discharge her several times but she kept coming back to their facility. From what I could gather the patient did have a primary care physician who was seeing her over at [facility] however patient explains to us that she was discharged from that doctors practice. On physical exam she does have bilateral wheezing. However it needs to be pointed out that when we walked into the room she appeared to be very comfortable and talking on the phone and as reexamine her she became very emotional, anxious, and had a change in affect. She had previously asked the resident for narcotic pain medication, and then when I came into the room she also asked again for narcotic pain medication. I had received advance warning from yesterday's medical team that we really concerned about the overuse of pain medication particularly in the setting of her being in respiratory distress. I explained this to her and explained that we would not be giving her large doses of narcotic pain medication. I would give her IV Toradol instead Per inspection of the patient's [place] prescription monitoring program, the patient does get very large amounts of controlled substances. Considering her wheezing, and her claim that she's been intubated several times I explained to her that she we are very reluctant to give controlled substances such as narcotics Thank you very much, Cameron Oneil
--- NOTE | 2017-08-09 15:57 | CP.PCM.PN ---
Subjective - Date & Time of Evaluation Date of Evaluation: 08/09/17 Time of Evaluation: 15:50 - Subjective Subjective: Reviewed [facility] on behalf of Dr. Oneil (hospitalist) on 08/09/17. Patient has filled scripts for * Promethazine w Codeine on 07/29/17, 06/24/17, 06/10/17, and 05/26/17 * Ambien 10mg Tabs on 07/29/17 (30 tabs for 30 days), 06/24/17 (30 tabs for 30 days), 05/26/17 (30 tabs for 30 days) * Endocet 10-325 on 07/29/17 (120 tabs for 30 days), on 06/25/17 ( 120 tabs for 30 days), 05/26/17 (120 tabs for 30 days) * Alprazolam 2mg on 06/1317 (60 tabs for 30 days), on 06/15/17 (30 tabs for 30 days), 06/20/17 (22 tabs for 11 days) Objective - Vital Signs/Intake and Output Vital Signs (last 24 hours): Temp Pulse Resp BP Pulse Ox 98.1 F 80 20 128/66 98 08/09/17 13:52 08/09/17 13:57 08/09/17 13:52 08/09/17 13:52 08/09/17 13:52 Intake and Output: 08/09/17 08/09/17 06:59 18:59 Intake Total 480 20 Output Total 500 Balance -20 20 - Medications Medications: Current Medications Albuterol/Ipratropium (Duoneb 3 Mg/0.5 Mg (3 Ml) Ud) 3 ml INH RQ4 [facility] Last Admin: 08/09/17 07:32 Dose: 3 ml Albuterol/Ipratropium (Duoneb 3 Mg/0.5 Mg (3 Ml) Ud) 3 ml INH RQ2 PRN PRN Reason: Shortness of Breath Alprazolam (Xanax) 0.25 mg PO BID PRN PRN Reason: Anxiety Stop: 08/15/17 16:50 Last Admin: 08/09/17 09:39 Dose: 0.25 mg Bacitracin (Bacitracin) 1 gm TOP TID [facility] Last Admin: 08/09/17 14:21 Dose: 1 applic Duloxetine HCl (Cymbalta) 60 mg PO DAILY [facility] Last Admin: 08/09/17 09:41 Dose: 60 mg Gabapentin (Neurontin) 300 mg PO HS [facility] Last Admin: 08/08/17 21:15 Dose: 300 mg Heparin Sodium (Porcine) (Heparin) 5,000 units SC Q8 [facility] Last Admin: 08/09/17 14:24 Dose: 5,000 units Azithromycin 500 mg/ Sodium (Chloride) 250 mls @ 250 mls/hr IVPB Q24H [facility] Last Admin: 08/08/17 17:55 Dose: 250 mls/hr Insulin Human Regular (Novolin R) 0 unit SC ACHS [facility] PRN Reason: Protocol Last Admin: 08/09/17 11:40 Dose: 3 unit Methylprednisolone (Solu-Medrol) 40 mg IVP Q8 [facility] Last Admin: 08/09/17 14:19 Dose: 40 mg Montelukast Sodium (Singulair) 10 mg PO HS [facility] Last Admin: 08/08/17 21:14 Dose: 10 mg Nicotine (Nicoderm Cq) 1 patch TD DAILY [facility] Last Admin: 08/09/17 09:38 Dose: 1 patch Pantoprazole Sodium (Protonix Ec Tab) 40 mg PO DAILY [facility] Last Admin: 08/09/17 09:39 Dose: 40 mg Quetiapine Fumarate (Seroquel) 25 mg PO QPM [facility] Last Admin: 08/08/17 17:48 Dose: 25 mg Fluticasone/Salmeterol (Advair Diskus 250/50) 1 puff INH RQ12 [facility] Last Admin: 08/09/17 07:40 Dose: Not Given Topiramate (Topamax) 50 mg PO DAILY [facility] Last Admin: 08/09/17 09:43 Dose: 50 mg Tramadol HCl (Ultram) 50 mg PO TID PRN PRN Reason: Pain, moderate (4-7) Last Admin: 08/09/17 14:19 Dose: 50 mg Trazodone HCl (Desyrel) 100 mg PO HS [facility] Last Admin: 08/08/17 21:24 Dose: 100 mg - Labs Labs: 08/09/17 06:26 08/09/17 06:26
[2017-08-09] MEDS: Azithromycin 500 MG in Sodium Chloride 0.9% 250 ML IVPB SCH (18:01)
--- NOTE | 2017-08-09 19:03 | CARD ---
APPROVED REPORT EKG Measurement Heart [id number] <Conclusion> Normal sinus rhythm Minimal voltage criteria for LVH, may be normal variant Borderline ECG
[2017-08-10] MEDS ORDERED: DiphenhydrAMINE 50 mg/ml Inj IVP STA (00:11)
[2017-08-10] MEDS: Albuterol-Ipratrop 3 mg / 0.5 (3 ml) UD INH SCH ×6 (03:05→23:42)
[2017-08-10] MEDS: MethylPREDNISolone 40 mg Vial IVP SCH ×3 (05:46→21:51)
[2017-08-10 06:32] LABS: BASO % 0.1 % (0.0-2.0); HEMATOCRIT 35.1 % (34.0-47.0); LYMPH # 0.4 K/uL (1.0-4.3); LYMPH % 6.3 % (20.0-40.0); MEAN CELL VOLUME 82.1 fL (81.0-99.0); MEAN CORPUSCULAR HEMOGLOBIN 26.5 pg (27.0-31.0); MEAN CORPUSCULAR HGB CONC 32.3 g/dL (33.0-37.0); MEAN PLATELET VOLUME 9.9 fL (7.2-11.7); MONO # 0.1 K/uL (0.0-0.8); MONO % 1.7 % (0.0-10.0); PLATELET COUNT 110 K/uL (130-400); RED CELL DISTRIBUTION WIDTH 13.6 % (11.5-14.5); WHITE BLOOD COUNT 6.8 K/uL (4.8-10.8)
[2017-08-10 06:55] LABS: ALB/GLOB RATIO 1.2 (1.0-2.1); ALKALINE PHOSPHATASE 106 U/L (38-126); ALT/SGPT 54 U/L (9-52); AST/SGOT 13 U/L (14-36); BILIRUBIN,TOTAL 0.4 mg/dL (0.2-1.3); BLOOD UREA NITROGEN 14 mg/dL (7-17); CARBON DIOXIDE 26 mmol/L (22-30); CHLORIDE 107 mmol/L (98-107); GFR AFRICAN-AMERICAN > 60; GLUCOSE,RANDOM 195 mg/dL (65-105); MAGNESIUM 1.9 mg/dL (1.6-2.3); PHOSPHOROUS 2.2 mg/dL (2.5-4.5); SODIUM 140 mmol/L (132-148); TOTAL PROTEIN 6.3 g/dL (6.3-8.3)
[2017-08-10] MEDS: Fluticasone-Salmeterol 250-50mcg Diskus INH SCH ×2 (07:10→19:20)
[2017-08-10] MEDS: (Novolin R) Insulin Human Regular 100 units/ml vial SC SCH ×4 (08:00→21:50)
[2017-08-10 08:40] LABS: NEUTROPHIL 95 % (50-75); TOTAL CELLS COUNTED 100
--- NOTE | 2017-08-10 09:02 | CP.PCM.PN ---
<Hoa Landry - Last Filed: 08/10/17 15:11> Subjective - Date & Time of Evaluation Date of Evaluation: 08/10/17 Time of Evaluation: 07:00 - Subjective Subjective: Medicine Note for Hospitalist Service - Dr. Leonidas Oneil Patient was seen and examined at bedside. Patient reports she is wheezing and anxious. She reports she feels her tongue is swollen. Denied fever, chills, headache, chest pain, abdominal pain, n/v/d/c, or urinary symptoms. Objective - Vital Signs/Intake and Output Vital Signs (last 24 hours): Temp Pulse Resp BP Pulse Ox 97.5 F L 83 18 122/66 95 08/10/17 07:58 08/10/17 07:58 08/10/17 07:58 08/10/17 07:58 08/10/17 07:58 Intake and Output: 08/10/17 08/10/17 06:59 18:59 Intake Total 570 Balance 570 - Medications Medications: Current Medications Albuterol/Ipratropium (Duoneb 3 Mg/0.5 Mg (3 Ml) Ud) 3 ml INH RQ4 [facility] Last Admin: 08/10/17 07:10 Dose: 3 ml Albuterol/Ipratropium (Duoneb 3 Mg/0.5 Mg (3 Ml) Ud) 3 ml INH RQ2 PRN PRN Reason: Shortness of Breath Alprazolam (Xanax) 0.25 mg PO BID PRN PRN Reason: Anxiety Stop: 08/15/17 16:50 Last Admin: 08/09/17 09:39 Dose: 0.25 mg Bacitracin (Bacitracin) 1 gm TOP TID [facility] Last Admin: 08/09/17 18:03 Dose: 1 applic Duloxetine HCl (Cymbalta) 60 mg PO DAILY [facility] Last Admin: 08/09/17 09:41 Dose: 60 mg Gabapentin (Neurontin) 300 mg PO HS [facility] Last Admin: 08/09/17 21:18 Dose: 300 mg Heparin Sodium (Porcine) (Heparin) 5,000 units SC Q8 [facility] Last Admin: 08/10/17 05:47 Dose: 5,000 units Azithromycin 500 mg/ Sodium (Chloride) 250 mls @ 250 mls/hr IVPB Q24H [facility] Last Admin: 08/09/17 18:01 Dose: 250 mls/hr Insulin Human Regular (Novolin R) 0 unit SC ACHS [facility] PRN Reason: Protocol Last Admin: 08/09/17 21:19 Dose: Not Given Methylprednisolone (Solu-Medrol) 40 mg IVP Q8 [facility] Last Admin: 08/10/17 05:46 Dose: 40 mg Montelukast Sodium (Singulair) 10 mg PO HS [facility] Last Admin: 08/09/17 21:18 Dose: 10 mg Nicotine (Nicoderm Cq) 1 patch TD DAILY [facility] Last Admin: 08/09/17 09:38 Dose: 1 patch Pantoprazole Sodium (Protonix Ec Tab) 40 mg PO DAILY [facility] Last Admin: 08/09/17 09:39 Dose: 40 mg Potassium Phos/Sodium Phos (Neutra-Phos) 1 pkt PO BIDCC [facility] Quetiapine Fumarate (Seroquel) 25 mg PO QPM [facility] Last Admin: 08/09/17 18:00 Dose: 25 mg Fluticasone/Salmeterol (Advair Diskus 250/50) 1 puff INH RQ12 [facility] Last Admin: 08/10/17 07:10 Dose: 1 puff Topiramate (Topamax) 50 mg PO DAILY [facility] Last Admin: 08/09/17 09:43 Dose: 50 mg Tramadol HCl (Ultram) 50 mg PO TID PRN PRN Reason: Pain, moderate (4-7) Last Admin: 08/10/17 04:49 Dose: 50 mg Trazodone HCl (Desyrel) 100 mg PO HS [facility] Last Admin: 08/09/17 21:18 Dose: 100 mg - Labs Labs: 08/10/17 06:18 08/10/17 06:18 - Additional Findings Additional findings: - Constitutional Appears: Non-toxic, No Acute Distress - Head Exam Head Exam: NORMAL INSPECTION - Eye Exam Eye Exam: EOMI - ENT Exam ENT Exam: Mucous Membranes Moist - Respiratory Exam Respiratory Exam: Wheezes absent: Clear to Auscultation Bilateral, Rales, Rhonchi Additional comments: - Cardiovascular Exam Cardiovascular Exam: REGULAR RHYTHM, +S1, +S2. absent: Gallop, Rubs, Systolic Murmur - GI/Abdominal Exam GI & Abdominal Exam: Normal Bowel Sounds, Soft. absent: Distended, Firm, Tenderness - Extremities Exam Extremities exam: Negative for: pedal edema - Neurological Exam Neurological exam: Alert, Oriented x3 - Psychiatric Exam Psychiatric exam: Normal Affect, Normal Mood - Skin Skin Exam: Normal Color, Warm Assessment and Plan - Assessment and Plan (Free Text) Plan: COPD exacerbation Pulmonology consulted - Dr. Green - help appreciated Patient is on home oxygen 2-3L CXR 08/08/17 - bibasilar opacities, possible atelectasis (please see full report) Medications: Solumedrol 40mg IvP Q8 Advair 250/50 INH BID Singulair 10mg PO HS Phenergan PRN for cough Mucomyst PRN Duonebs 3ml INH RQ4, Q2H PRN- SOB Ruled out Pneumonia CXR 08/08/17 - bibasilar opacities, possible atelectasis (please see full report) CXR PA/ Lateral 08/09/17 : No active pulmonary disease. Labs: F/U blood culture - no growth to date F/U sputum culture - no abnormal growth to date F/U strep, mycoplasma, legionella - negative Medication: Zithromax 500mg IVPB daily Arthritis Tramadol 50mg PO Q8 PRN pain Patient requested we start percocet or other pain medications. We spoke to patient especially due to her history of 5 intubations,1 within this past year, adding narcotics to her current state will lower her respiratory drive, and might lead her to become reintubated. She stated she understands this but feels the pain medication helps her breathing. Bilateral Knee Pain Lidocaine 2% topical Anxiety Cymbalta 60mg PO daily Xanax 0.25mg PO BID PRN anxiety Trazadone 50mg PO HS Seroquel 25mg PO HS Gabapentin 300mg PO HS Sleep Apnea Reports she does not have a CPAP. Her PMD has sent a letter to her house, stating he will no longer be her PMD and that she should find another PMD. Migraine Topamax 50mg PO daily Prophylaxis Protonix 40mg PO daily Heparin 5000U SC Q8, SCDs Dr. Arredondo Reviewed [facility] on behalf of Dr. Oneil (hospitalist) on 08/09/17. Patient has filled scripts for * Promethazine w Codeine on 07/29/17, 06/24/17, 06/10/17, and 05/26/17 * Ambien 10mg Tabs on 07/29/17 (30 tabs for 30 days), 06/24/17 (30 tabs for 30 days), 05/26/17 (30 tabs for 30 days) * Endocet 10-325 on 07/29/17 (120 tabs for 30 days), on 06/25/17 ( 120 tabs for 30 days), 05/26/17 (120 tabs for 30 days) * Alprazolam 2mg on 06/1317 (60 tabs for 30 days), on 06/15/17 (30 tabs for 30 days), 06/20/17 (22 tabs for 11 days) Disposition: Anticipate discharge tomorrow 08/11/17. DW Dr. Oneil, Frantz HOPKINS, PGY-1 <Cameron Oneil H - Last Filed: 08/10/17 17:50> Objective - Vital Signs/Intake and Output Vital Signs (last 24 hours): Temp Pulse Resp BP Pulse Ox 98.2 F 83 18 128/82 96 08/10/17 15:00 08/10/17 15:00 08/10/17 15:00 08/10/17 15:00 08/10/17 15:00 Intake and Output: 08/10/17 08/10/17 06:59 18:59 Intake Total 570 400 Balance 570 400 - Medications Medications: Current Medications Acetylcysteine (Acetylcysteine 20%) 4 ml INH RQ6 [facility] Last Admin: 08/10/17 13:16 Dose: Not Given Albuterol/Ipratropium (Duoneb 3 Mg/0.5 Mg (3 Ml) Ud) 3 ml INH RQ4 [facility] Last Admin: 08/10/17 13:12 Dose: 3 ml Albuterol/Ipratropium (Duoneb 3 Mg/0.5 Mg (3 Ml) Ud) 3 ml INH RQ2 PRN PRN Reason: Shortness of Breath Alprazolam (Xanax) 0.25 mg PO BID PRN PRN Reason: Anxiety Stop: 08/15/17 16:50 Last Admin: 08/10/17 09:36 Dose: 0.25 mg Bacitracin (Bacitracin) 1 gm TOP TID [facility] Last Admin: 08/10/17 14:04 Dose: 1 applic Duloxetine HCl (Cymbalta) 60 mg PO DAILY [facility] Last Admin: 08/10/17 09:32 Dose: 60 mg Gabapentin (Neurontin) 300 mg PO HS [facility] Last Admin: 08/09/17 21:18 Dose: 300 mg Heparin Sodium (Porcine) (Heparin) 5,000 units SC Q8 [facility] Last Admin: 08/10/17 14:06 Dose: 5,000 units Azithromycin 500 mg/ Sodium (Chloride) 250 mls @ 250 mls/hr IVPB Q24H [facility] Last Admin: 08/10/17 17:27 Dose: 250 mls/hr Insulin Human Regular (Novolin R) 0 unit SC ACHS [facility] PRN Reason: Protocol Last Admin: 08/10/17 17:24 Dose: 2 unit Lidocaine HCl (Xylocaine 2%) 0 ea TOP TID [facility] Last Admin: 08/10/17 14:12 Dose: 2 % Methylprednisolone (Solu-Medrol) 40 mg IVP Q8 [facility] Last Admin: 08/10/17 14:08 Dose: 40 mg Montelukast Sodium (Singulair) 10 mg PO HS [facility] Last Admin: 08/09/17 21:18 Dose: 10 mg Nicotine (Nicoderm Cq) 1 patch TD DAILY [facility] Last Admin: 08/10/17 09:31 Dose: 1 patch Pantoprazole Sodium (Protonix Ec Tab) 40 mg PO DAILY [facility] Last Admin: 08/10/17 09:42 Dose: 40 mg Potassium Phos/Sodium Phos (Neutra-Phos) 1 pkt PO BIDCC [facility] Last Admin: 08/10/17 09:31 Dose: 1 pkt Promethazine HCl (Phenergan Syrup) 12.5 mg PO Q6 PRN PRN Reason: Cough Quetiapine Fumarate (Seroquel) 25 mg PO QPM [facility] Last Admin: 08/10/17 17:25 Dose: 25 mg Fluticasone/Salmeterol (Advair Diskus 250/50) 1 puff INH RQ12 [facility] Last Admin: 08/10/17 07:10 Dose: 1 puff Topiramate (Topamax) 50 mg PO DAILY [facility] Last Admin: 08/10/17 09:31 Dose: 50 mg Tramadol HCl (Ultram) 50 mg PO TID PRN PRN Reason: Pain, moderate (4-7) Last Admin: 12/12/17 16:46 Dose: 50 mg Trazodone HCl (Desyrel) 100 mg PO HS [facility] Last Admin: 08/09/17 21:18 Dose: 100 mg - Labs Labs: 08/10/17 06:18 08/10/17 06:18 Attending/Attestation - Attestation I have personally seen and examined this patient.: Yes I have fully participated in the care of the patient.: Yes I have reviewed all pertinent clinical information, including history, physical exam and plan: Yes Notes (Text): Medical Attending: Patient was seen and examined by me. Agree with the above note by the resident Before we walked into the room the patient was observed to be in no acute distress and looking at her phone. As we come into the room she appears to have a sudden anxious change and breathig very hard. The patient was still asking for percocet to be given saying that it would help with her breathing. Her pain she says in chronic knee pain. It seems that the IV toradol did not help. We explained to her that opioid/narcotic class medications do not treat asthma exacerbations and that they very likely can make the situation worse. I don't know if we were able to get this point across to her despite us talking about this at length. Possible discharge tomorrow with inhalers and tapering prednisone. She also has to try to stop smoking. thank you Cameron Oneil
[2017-08-10] MEDS: Bacitracin Ointment 30 GM TUBE TOP SCH ×3 (09:30→18:00)
[2017-08-10] MEDS: Potassium & Sodium Phosphate PO SCH ×2 (09:31→18:00)
[2017-08-10] MEDS: Pantoprazole 40 mg EC Tab PO SCH (09:42)
[2017-08-10] MEDS ORDERED: Promethazine 12.5 mg/10 ml Syrup PO PRN (11:42)
[2017-08-10] MEDS: Acetylcysteine 20% Inhal Soln (4ml) INH SCH ×2 (13:16→19:18)
[2017-08-10] MEDS: Lidocaine 2% Jelly (30 ml) TOP SCH ×2 (14:12→18:00)
[2017-08-10] MEDS: Azithromycin 500 MG in Sodium Chloride 0.9% 250 ML IVPB SCH (17:27)
[2017-08-11 00:52] VITALS: RESP 20
[2017-08-11] MEDS: Albuterol-Ipratrop 3 mg / 0.5 (3 ml) UD INH SCH ×3 (03:20→12:40)
[2017-08-11] MEDS: Acetylcysteine 20% Inhal Soln (4ml) INH SCH ×2 (03:20→07:05)
[2017-08-11] MEDS: MethylPREDNISolone 40 mg Vial IVP SCH ×2 (05:36→15:06)
[2017-08-11 07:04] LABS: BASO % 0.2 % (0.0-2.0); HEMATOCRIT 35.7 % (34.0-47.0); LYMPH # 0.6 K/uL (1.0-4.3); LYMPH % 8.2 % (20.0-40.0); MEAN CELL VOLUME 82.2 fL (81.0-99.0); MEAN CORPUSCULAR HEMOGLOBIN 27.4 pg (27.0-31.0); MEAN CORPUSCULAR HGB CONC 33.3 g/dL (33.0-37.0); MEAN PLATELET VOLUME 9.5 fL (7.2-11.7); MONO # 0.1 K/uL (0.0-0.8); MONO % 1.9 % (0.0-10.0); PLATELET COUNT 123 K/uL (130-400); RED CELL DISTRIBUTION WIDTH 13.7 % (11.5-14.5); WHITE BLOOD COUNT 7.6 K/uL (4.8-10.8)
[2017-08-11] MEDS: Fluticasone-Salmeterol 250-50mcg Diskus INH SCH (07:05)
[2017-08-11 07:53] LABS: ALB/GLOB RATIO 1.6 (1.0-2.1); ALKALINE PHOSPHATASE 117 U/L (38-126); ALT/SGPT 45 U/L (9-52); AST/SGOT 16 U/L (14-36); BILIRUBIN,TOTAL 0.4 mg/dL (0.2-1.3); BLOOD UREA NITROGEN 16 mg/dL (7-17); CALCIUM 8.1 mg/dl (8.6-10.4); CARBON DIOXIDE 24 mmol/L (22-30); CHLORIDE 106 mmol/L (98-107); GFR AFRICAN-AMERICAN > 60; GLUCOSE,RANDOM 211 mg/dL (65-105); PHOSPHOROUS 2.2 mg/dL (2.5-4.5); POTASSIUM 3.7 mmol/L (3.6-5.2); SODIUM 138 mmol/L (132-148); TOTAL PROTEIN 5.6 g/dL (6.3-8.3)
[2017-08-11] MEDS: Potassium & Sodium Phosphate PO SCH (08:12)
[2017-08-11] MEDS: (Novolin R) Insulin Human Regular 100 units/ml vial SC SCH ×2 (08:13→11:05)
[2017-08-11 08:38] LABS: NEUTROPHIL 90 % (50-75); TOTAL CELLS COUNTED 100
[2017-08-11] MEDS: Pantoprazole 40 mg EC Tab PO SCH (09:28)
[2017-08-11] MEDS: Bacitracin Ointment 30 GM TUBE TOP SCH ×2 (09:29→15:05)
--- NOTE | 2017-08-11 09:39 | CP.PCM.DIS ---
<Hoa Landry - Last Filed: 08/11/17 12:11> Provider - Provider Date of Admission: 08/10/17 14:02 Attending physician: Cameron Oneil DO Time Spent in preparation of Discharge (in minutes): 55 Hospital Course - Lab Results Lab Results: Micro Results 08/11/17 03:35 Sputum Gram Stain - Preliminary 08/08/17 13:55 Blood Blood Culture - Preliminary NO GROWTH AFTER 48 HOURS 08/08/17 14:05 Blood Blood Culture - Preliminary NO GROWTH AFTER 48 HOURS 08/08/17 Unknown Nose MRSA Culture (Admit) - Final MRSA NOT DETECTED 08/09/17 11:28 Naris MRSA Culture - Final MRSA NOT DETECTED 08/07/17 19:13 Sputum Induced Gram Stain - Final 08/07/17 19:13 Sputum Induced Sputum Culture - Final Most Recent Lab Values WBC 7.6 K/uL (4.8-10.8) 08/11/17 06:48 RBC 4.34 Mil/uL (3.80-5.20) 08/11/17 06:48 Hgb 11.9 g/dL (11.0-16.0) 08/11/17 06:48 Hct 35.7 % (34.0-47.0) 08/11/17 06:48 MCV 82.2 fL (81.0-99.0) 08/11/17 06:48 MCH 27.4 pg (27.0-31.0) 08/11/17 06:48 MCHC 33.3 g/dL (33.0-37.0) 08/11/17 06:48 RDW 13.7 % (11.5-14.5) 08/11/17 06:48 Plt Count 123 K/uL (130-400) L 08/11/17 06:48 MPV 9.5 fL (7.2-11.7) 08/11/17 06:48 Neut % (Auto) 89.7 % (50.0-75.0) H 08/11/17 06:48 Lymph % (Auto) 8.2 % (20.0-40.0) L 08/11/17 06:48 [place] % (Auto) 1.9 % (0.0-10.0) 08/11/17 06:48 Eos % (Auto) 0.0 % (0.0-4.0) 08/11/17 06:48 Baso % (Auto) 0.2 % (0.0-2.0) 08/11/17 06:48 Neut # 6.8 K/uL (1.8-7.0) 08/11/17 06:48 Lymph # 0.6 K/uL (1.0-4.3) L 08/11/17 06:48 [place] # 0.1 K/uL (0.0-0.8) 08/11/17 06:48 Eos # 0.0 K/uL (0.0-0.7) 08/11/17 06:48 Baso # 0.0 K/uL (0.0-0.2) 08/11/17 06:48 Neutrophils % (Manual) 90 % (50-75) H 08/11/17 06:48 Band Neutrophils % 1 % (0-2) 08/11/17 06:48 Lymphocytes % (Manual) 8 % (20-40) L 08/11/17 06:48 Monocytes % (Manual) 1 % (0-10) 08/11/17 06:48 Differential Comment 08/08/17 14:04 Platelet Estimate Slightly decreased (NORMAL) L 08/11/17 06:48 RBC Morphology Normal 08/11/17 06:48 Polychromasia Slight 08/10/17 06:18 Hypochromasia (manual) Slight 08/10/17 06:18 Poikilocytosis (manual Slight 08/09/17 06:26 Anisocytosis (manual) Slight 08/10/17 06:18 Ovalocytes Slight 08/10/17 06:18 Puncture Site Rra 08/08/17 14:15 pCO2 35 mm/Hg (35-45) 08/08/17 14:15 pO2 106 mm/Hg (80-100) H 08/08/17 14:15 HCO3 25.0 mmol/L (21-28) 08/08/17 14:15 ABG pH 7.44 (7.35-7.45) 08/08/17 14:15 ABG Total CO2 24.9 mmol/L (22-28) 08/08/17 14:15 ABG O2 Saturation 99.5 % (95-98) H 08/08/17 14:15 ABG Base Excess 0.1 mmol/L (-2.0-3.0) 08/08/17 14:15 Ramon Test Na 08/08/17 14:15 ABG Potassium 3.0 mmol/L (3.6-5.2) L 08/08/17 14:15 A-a O2 Difference 135.0 mm/Hg 08/08/17 14:15 Respiratory Index 1.3 08/08/17 14:15 Sodium 144.0 mmol/l (132-148) 08/08/17 14:15 Chloride 111.0 mmol/L (98-107) H 08/08/17 14:15 Glucose 158 mg/dl (65-105) H 08/08/17 14:15 Lactate 1.5 mmol/L (0.7-2.1) 08/08/17 14:15 Vent Mode Bipap 08/08/17 14:15 Mechanical Rate 14 08/08/17 14:15 FiO2 40.0 % 08/08/17 14:15 Inspiratory BiPAP 14 08/08/17 14:15 Expiratory BiPAP 7 08/08/17 14:15 Sodium 138 mmol/L (132-148) 08/11/17 06:48 Potassium 3.7 mmol/L (3.6-5.2) 08/11/17 06:48 Chloride 106 mmol/L (98-107) 08/11/17 06:48 Carbon Dioxide 24 mmol/L (22-30) 08/11/17 06:48 Anion Gap 11 (10-20) 08/11/17 06:48 BUN 16 mg/dL (7-17) 08/11/17 06:48 Creatinine 0.6 mg/dL (0.7-1.2) L 08/11/17 06:48 Est GFR ( Amer) > 60 08/11/17 06:48 Est GFR (Non-Af Amer) > 60 08/11/17 06:48 POC Glucose (mg/dL) 195 mg/dL (65-110) H 08/11/17 05:59 Random Glucose 211 mg/dL (65-105) H 08/11/17 06:48 Calcium 8.1 mg/dl (8.6-10.4) L 08/11/17 06:48 Phosphorus 2.2 mg/dL (2.5-4.5) L 08/11/17 06:48 Magnesium 2.0 mg/dL (1.6-2.3) 08/11/17 06:48 Total Bilirubin 0.4 mg/dL (0.2-1.3) 08/11/17 06:48 AST 16 U/L (14-36) 08/11/17 06:48 ALT 45 U/L (9-52) 08/11/17 06:48 Alkaline Phosphatase 117 U/L (38-126) 08/11/17 06:48 Troponin I < 0.0120 ng/mL (0.00-0.120) 08/08/17 14:04 NT-Pro-B Natriuret Pep 63.9 pg/mL (0-900) 08/08/17 14:04 Total Protein 5.6 g/dL (6.3-8.3) L 08/11/17 06:48 Albumin 3.4 g/dL (3.5-5.0) L 08/11/17 06:48 Globulin 2.2 gm/dL (2.2-3.9) 08/11/17 06:48 Albumin/Globulin Ratio 1.6 (1.0-2.1) 08/11/17 06:48 Arterial Blood Potassium 3.0 mmol/L (3.6-5.2) L 08/08/17 14:15 Urine Color Yellow (YELLOW) 08/08/17 16:39 Urine Clarity Hazy (Clear) 08/08/17 16:39 Urine pH 5.0 (5.0-8.0) 08/08/17 16:39 Ur Specific [place] 1.026 (1.003-1.030) 08/08/17 16:39 Urine Protein Negative mg/dL (NEGATIVE) 08/08/17 16:39 Urine Glucose (UA) 1+ mg/dL (Normal) 08/08/17 16:39 Urine Ketones Negative mg/dL (NEGATIVE) 08/08/17 16:39 Urine Blood Negative (NEGATIVE) 08/08/17 16:39 Urine Nitrate Negative (NEGATIVE) 08/08/17 16:39 Urine Bilirubin Negative (NEGATIVE) 08/08/17 16:39 Urine Urobilinogen Normal mg/dL (0.2-1.0) 08/08/17 16:39 Ur Leukocyte Esterase Neg Malina/uL (Negative) 08/08/17 16:39 Urine WBC (Auto) 4 /hpf (0-5) 08/08/17 16:39 Urine RBC (Auto) 4 /hpf (0-3) H 08/08/17 16:39 Ur Squamous Epith Cells 13 /hpf (0-5) H 08/08/17 16:39 Urine Bacteria Rare (<OCC) 08/08/17 16:39 Urine Opiates Screen Positive (NEGATIVE) H 08/08/17 16:39 Urine Methadone Screen Negative (NEGATIVE) 08/08/17 16:39 Ur Barbiturates Screen Negative (NEGATIVE) 08/08/17 16:39 Ur Phencyclidine Scrn Negative (NEGATIVE) 08/08/17 16:39 Ur Amphetamines Screen Negative (NEGATIVE) 08/08/17 16:39 U Benzodiazepines Scrn Positive (NEGATIVE) 08/08/17 16:39 U Oth Cocaine Metabols Negative (NEGATIVE) 08/08/17 16:39 U Cannabinoids Screen Negative (NEGATIVE) 08/08/17 16:39 Ur L.pneumophila Ag Negative (NEGATIVE) 08/08/17 17:26 - Hospital Course Hospital Course: Upon Admission: CC: "I feel like I can't breath" HPI: Patient is a 56 year old female with PMHx of anxiety, COPD, migraines, arthritis and depression presenting for shortness of breath, wheezing and coughing for the past 4-5 days, worsening today. Patient reports associated chest tightness. Patient also has bilateral knee pain. She is very concerned about getting percocet for this. Patient says she takes percocet at home. Patient was admitted to [facility] at the end of June twice. She was discharged with prenidsone, Omnicef and zithromax for 7 days. Patient finished these medications and is now feeling worse. Patient says she has been itnubated 5 times in the past, once in the past year. Patient denies fever, chills, chest pain, palpitations, abdominal pain, nausea, vomiting, diarrhea, constipation, dysuria. PMD: none (patient was discharged from her PMD's care) PMHx: as above PSHx: Left knee surgery, 3 C sections, cholecystectomy, ovarian cystectomy, colonoscopy and endoscopy in 2015 Social Hx: quit tobacco 4 days before which she smoked 1/3 ppd for over 30 years , denies ETOH, denies drug use, lives alone, on disability Family Hx: reviewed, no findings relevant to current condition Allergies:Cipro and PCN - itchiness Throughout Hospital Course: Patient was admitted for COPD exacerbation. COPD exacerbation Pulmonology consulted - Dr. Green - help appreciated Patient is on home oxygen 2-3L CXR 08/08/17 - bibasilar opacities, possible atelectasis (please see full report) Medications: Solumedrol 40mg IvP Q8 Advair 250/50 INH BID Singulair 10mg PO HS Phenergan PRN for cough Mucomyst PRN Duonebs 3ml INH RQ4, Q2H PRN- SOB Ruled out Pneumonia CXR 08/08/17 - bibasilar opacities, possible atelectasis (please see full report) CXR PA/ Lateral 08/09/17 : No active pulmonary disease. Labs: F/U blood culture - no growth to date F/U sputum culture - no abnormal growth to date F/U strep, mycoplasma, legionella - negative Medication: Zithromax 500mg IVPB daily Tobacco Use Disorder Smoking cessation encouraged Nicotine patch Arthritis Bilateral Knee Pain Lidocaine 2% topical Tramadol 50mg PO Q8 PRN pain Patient requested we start percocet or other pain medications. We spoke to patient especially due to her history of 5 intubations,1 within this past year, adding narcotics to her current state will lower her respiratory drive, and might lead her to become reintubated. She stated she understands this but feels the pain medication helps her breathing. Dr. Arredondo Reviewed [facility] on behalf of Dr. Oneil (hospitalist) on 08/09/17. Patient has filled scripts for * Promethazine w Codeine on 07/29/17, 06/24/17, 06/10/17, and 05/26/17 * Ambien 10mg Tabs on 07/29/17 (30 tabs for 30 days), 06/24/17 (30 tabs for 30 days), 05/26/17 (30 tabs for 30 days) * Endocet 10-325 on 07/29/17 (120 tabs for 30 days), on 06/25/17 ( 120 tabs for 30 days), 05/26/17 (120 tabs for 30 days) * Alprazolam 2mg on 06/1317 (60 tabs for 30 days), on 06/15/17 (30 tabs for 30 days), 06/20/17 (22 tabs for 11 days) Patient reported she has an appointment with pain management on 08/26/17 Anxiety Cymbalta 60mg PO daily Xanax 0.25mg PO BID PRN anxiety Trazadone 50mg PO HS Seroquel 25mg PO HS Gabapentin 300mg PO HS Sleep Apnea Reports she does not have a CPAP. Her PMD has sent a letter to her house, stating he will no longer be her PMD and that she should find another PMD. Migraine Topamax 50mg PO daily This is a brief summary of the patient's hospital course. Please review EMR for full record. Discharge Exam - Head Exam Head Exam: NORMAL INSPECTION - Additional Findings Additional findings: - Constitutional Appears: Non-toxic, No Acute Distress - Head Exam Head Exam: NORMAL INSPECTION - Eye Exam Eye Exam: EOMI - ENT Exam ENT Exam: Mucous Membranes Moist - Respiratory Exam Respiratory Exam: Wheezes absent: Clear to Auscultation Bilateral, Rales, Rhonchi Additional comments: - Cardiovascular Exam Cardiovascular Exam: REGULAR RHYTHM, +S1, +S2. absent: Gallop, Rubs, Systolic Murmur - GI/Abdominal Exam GI & Abdominal Exam: Normal Bowel Sounds, Soft. absent: Distended, Firm, Tenderness - Extremities Exam Extremities exam: Negative for: pedal edema - Neurological Exam Neurological exam: Alert, Oriented x3 - Psychiatric Exam Psychiatric exam: Normal Affect, Normal Mood - Skin Skin Exam: Normal Color, Warm Discharge Plan - Discharge Medications Prescriptions: Azithromycin [Z-Johnathon] 250 mg PO DAILY #6 tab Fluticasone/Salmeterol [Fluticasone-Salmeterol 232-14] 1 each IH Q12 #1 aer.[email or web address] Nicotine 21 mg/24 hr [Nicoderm Cq] 21 mg TD DAILY #7 patch predniSONE [predniSONE Tab] 10 mg PO BID #6 tab predniSONE [predniSONE Tab] 10 mg PO DAILY #3 tab predniSONE [predniSONE Tab] 20 mg PO BID #6 tab predniSONE [predniSONE Tab] 20 mg PO DAILY #3 tab - Follow Up Plan Condition: FAIR Disposition: HOME/ ROUTINE Instructions: Prednisone (By mouth), Azithromycin (By mouth), Nicotine ( Absorbed through the skin), Fluticasone/Salmeterol (By breathing), How to Stop Smoking (DC), Heart Healthy Diet (DC), Cigarette Smoking and Your Health (GEN), COPD (Chronic Obstructive Pulmonary Disease) (DC), Pneumonia (DC) Additional Instructions: Please continue to the take your current medications. We added a steroid taper ( 20mg by mouth twice a day x 3 day, 10mg by mouth 3 times a day x 3 days, 20mg by mouth daily x 3 days, and 10mg by mouth daily x 3 days) and an antibiotic. You will need to STOP SMOKING. You already have difficulty breathing at baseline and home oxygen at home. This tells us your COPD and Asthma are severe. You will need to stop smoking to help better your situation. If you continue to smoke you will continue to land back in the hospital. Please stop smoking, this will help you with your breathing. Please follow up with a new primary care physician when you have one. Follow up a medical facilities section director as well to better manage your COPD and Asthma. ----- Contine tomando judah medicamentos actuales. Aadimos un cono de esteroides y un antibitico. Deber DEJAR DE FUMAR. Ya tiene dificultad para respirar al inicio del estudio y oxgeno domiciliario en casa. [place] nos dice que howard EPOC y howard asma son graves. Deber dejar de fumar para ayudar a mejorar howard situacin. Si contin a fumando continuar aterrizando en el hospital. Por favor, lino de fumar, esto te ayudar con tu respiracin. Por favor twyla un seguimiento con un nuevo mdico de atencin primaria cuando tenga abdoul. Twyla un seguimiento de un neumlogo para controlar mejor howard EPOC y el asma. Referrals: Nolan Green MD [Staff Provider] - <Cameron Oneil - Last Filed: 08/11/17 13:53> Provider - Provider Date of Admission: 08/10/17 14:02 Attending physician: Cameron Oneil, DO Hospital Course - Lab Results Lab Results: Micro Results 08/11/17 03:35 Sputum Gram Stain - Preliminary 08/08/17 13:55 Blood Blood Culture - Preliminary NO GROWTH AFTER 48 HOURS 08/08/17 14:05 Blood Blood Culture - Preliminary NO GROWTH AFTER 48 HOURS 08/08/17 Unknown Nose MRSA Culture (Admit) - Final MRSA NOT DETECTED 08/09/17 11:28 Naris MRSA Culture - Final MRSA NOT DETECTED 08/07/17 19:13 Sputum Induced Gram Stain - Final 08/07/17 19:13 Sputum Induced Sputum Culture - Final Most Recent Lab Values WBC 7.6 K/uL (4.8-10.8) 08/11/17 06:48 RBC 4.34 Mil/uL (3.80-5.20) 08/11/17 06:48 Hgb 11.9 g/dL (11.0-16.0) 08/11/17 06:48 Hct 35.7 % (34.0-47.0) 08/11/17 06:48 MCV 82.2 fL (81.0-99.0) 08/11/17 06:48 MCH 27.4 pg (27.0-31.0) 08/11/17 06:48 MCHC 33.3 g/dL (33.0-37.0) 08/11/17 06:48 RDW 13.7 % (11.5-14.5) 08/11/17 06:48 Plt Count 123 K/uL (130-400) L 08/11/17 06:48 MPV 9.5 fL (7.2-11.7) 08/11/17 06:48 Neut % (Auto) 89.7 % (50.0-75.0) H 08/11/17 06:48 Lymph % (Auto) 8.2 % (20.0-40.0) L 08/11/17 06:48 [place] % (Auto) 1.9 % (0.0-10.0) 08/11/17 06:48 Eos % (Auto) 0.0 % (0.0-4.0) 08/11/17 06:48 Baso % (Auto) 0.2 % (0.0-2.0) 08/11/17 06:48 Neut # 6.8 K/uL (1.8-7.0) 08/11/17 06:48 Lymph # 0.6 K/uL (1.0-4.3) L 08/11/17 06:48 [place] # 0.1 K/uL (0.0-0.8) 08/11/17 06:48 Eos # 0.0 K/uL (0.0-0.7) 08/11/17 06:48 Baso # 0.0 K/uL (0.0-0.2) 08/11/17 06:48 Neutrophils % (Manual) 90 % (50-75) H 08/11/17 06:48 Band Neutrophils % 1 % (0-2) 08/11/17 06:48 Lymphocytes % (Manual) 8 % (20-40) L 08/11/17 06:48 Monocytes % (Manual) 1 % (0-10) 08/11/17 06:48 Differential Comment 08/08/17 14:04 Platelet Estimate Slightly decreased (NORMAL) L 08/11/17 06:48 RBC Morphology Normal 08/11/17 06:48 Polychromasia Slight 08/10/17 06:18 Hypochromasia (manual) Slight 08/10/17 06:18 Poikilocytosis (manual Slight 08/09/17 06:26 Anisocytosis (manual) Slight 08/10/17 06:18 Ovalocytes Slight 08/10/17 06:18 Puncture Site Rra 08/08/17 14:15 pCO2 35 mm/Hg (35-45) 08/08/17 14:15 pO2 106 mm/Hg (80-100) H 08/08/17 14:15 HCO3 25.0 mmol/L (21-28) 08/08/17 14:15 ABG pH 7.44 (7.35-7.45) 08/08/17 14:15 ABG Total CO2 24.9 mmol/L (22-28) 08/08/17 14:15 ABG O2 Saturation 99.5 % (95-98) H 08/08/17 14:15 ABG Base Excess 0.1 mmol/L (-2.0-3.0) 08/08/17 14:15 Ramon Test Na 08/08/17 14:15 ABG Potassium 3.0 mmol/L (3.6-5.2) L 08/08/17 14:15 A-a O2 Difference 135.0 mm/Hg 08/08/17 14:15 Respiratory Index 1.3 08/08/17 14:15 Sodium 144.0 mmol/l (132-148) 08/08/17 14:15 Chloride 111.0 mmol/L (98-107) H 08/08/17 14:15 Glucose 158 mg/dl (65-105) H 08/08/17 14:15 Lactate 1.5 mmol/L (0.7-2.1) 08/08/17 14:15 Vent Mode Bipap 08/08/17 14:15 Mechanical Rate 14 08/08/17 14:15 FiO2 40.0 % 08/08/17 14:15 Inspiratory BiPAP 14 08/08/17 14:15 Expiratory BiPAP 7 08/08/17 14:15 Sodium 138 mmol/L (132-148) 08/11/17 06:48 Potassium 3.7 mmol/L (3.6-5.2) 08/11/17 06:48 Chloride 106 mmol/L (98-107) 08/11/17 06:48 Carbon Dioxide 24 mmol/L (22-30) 08/11/17 06:48 Anion Gap 11 (10-20) 08/11/17 06:48 BUN 16 mg/dL (7-17) 08/11/17 06:48 Creatinine 0.6 mg/dL (0.7-1.2) L 08/11/17 06:48 Est GFR ( Amer) > 60 08/11/17 06:48 Est GFR (Non-Af Amer) > 60 08/11/17 06:48 POC Glucose (mg/dL) 234 mg/dL (65-110) H 08/11/17 11:13 Random Glucose 211 mg/dL (65-105) H 08/11/17 06:48 Calcium 8.1 mg/dl (8.6-10.4) L 08/11/17 06:48 Phosphorus 2.2 mg/dL (2.5-4.5) L 08/11/17 06:48 Magnesium 2.0 mg/dL (1.6-2.3) 08/11/17 06:48 Total Bilirubin 0.4 mg/dL (0.2-1.3) 08/11/17 06:48 AST 16 U/L (14-36) 08/11/17 06:48 ALT 45 U/L (9-52) 08/11/17 06:48 Alkaline Phosphatase 117 U/L (38-126) 08/11/17 06:48 Troponin I < 0.0120 ng/mL (0.00-0.120) 08/08/17 14:04 NT-Pro-B Natriuret Pep 63.9 pg/mL (0-900) 08/08/17 14:04 Total Protein 5.6 g/dL (6.3-8.3) L 08/11/17 06:48 Albumin 3.4 g/dL (3.5-5.0) L 08/11/17 06:48 Globulin 2.2 gm/dL (2.2-3.9) 08/11/17 06:48 Albumin/Globulin Ratio 1.6 (1.0-2.1) 08/11/17 06:48 Arterial Blood Potassium 3.0 mmol/L (3.6-5.2) L 08/08/17 14:15 Urine Color Yellow (YELLOW) 08/08/17 16:39 Urine Clarity Hazy (Clear) 08/08/17 16:39 Urine pH 5.0 (5.0-8.0) 08/08/17 16:39 Ur Specific [place] 1.026 (1.003-1.030) 08/08/17 16:39 Urine Protein Negative mg/dL (NEGATIVE) 08/08/17 16:39 Urine Glucose (UA) 1+ mg/dL (Normal) 08/08/17 16:39 Urine Ketones Negative mg/dL (NEGATIVE) 08/08/17 16:39 Urine Blood Negative (NEGATIVE) 08/08/17 16:39 Urine Nitrate Negative (NEGATIVE) 08/08/17 16:39 Urine Bilirubin Negative (NEGATIVE) 08/08/17 16:39 Urine Urobilinogen Normal mg/dL (0.2-1.0) 08/08/17 16:39 Ur Leukocyte Esterase Neg Malina/uL (Negative) 08/08/17 16:39 Urine WBC (Auto) 4 /hpf (0-5) 08/08/17 16:39 Urine RBC (Auto) 4 /hpf (0-3) H 08/08/17 16:39 Ur Squamous Epith Cells 13 /hpf (0-5) H 08/08/17 16:39 Urine Bacteria Rare (<OCC) 08/08/17 16:39 Urine Opiates Screen Positive (NEGATIVE) H 08/08/17 16:39 Urine Methadone Screen Negative (NEGATIVE) 08/08/17 16:39 Ur Barbiturates Screen Negative (NEGATIVE) 08/08/17 16:39 Ur Phencyclidine Scrn Negative (NEGATIVE) 08/08/17 16:39 Ur Amphetamines Screen Negative (NEGATIVE) 08/08/17 16:39 U Benzodiazepines Scrn Positive (NEGATIVE) 08/08/17 16:39 U Oth Cocaine Metabols Negative (NEGATIVE) 08/08/17 16:39 U Cannabinoids Screen Negative (NEGATIVE) 08/08/17 16:39 Ur L.pneumophila Ag Negative (NEGATIVE) 08/08/17 17:26 Attending/Attestation - Attestation I have personally seen and examined this patient.: Yes I have fully participated in the care of the patient.: Yes I have reviewed all pertinent clinical information, including history, physical exam and plan: Yes Notes (Text): 08/11/17 13:53 Medical attending: Patient was seen and examined by me, agrees the above note by medical aide. The patient is not happy with the prospect of being discharged today. Overnight on told that she was continuously asking for pain medication despite getting Toradol and lidocaine patches. Before I walked in the room she was oriented out of bed sitting in a chair talking to the neighbor in her room. She did not notice us however we observed her being not in any acute distress at all. She is speaking in full sentences and she was not wheezing. We then came into the room and spoke with the patient, and on examination she again had the appearance of anxiety and coughing. As mentioned previously the patient did have a primary medical doctor however from what I understand she was discharged from that practice. So she's can have to try to find another primary medical doctor. She is given prescriptions for breathing, as documented above the resident note. This being said, I'm most concerned about the patient's smoking and I encouraged her to stop smoking. This is particularly important. And she asked for a nicotine patch and we will do so Furthermore we encourage the patient to try to avoid opiod/narcotic medication due to concerns over her breathing thank you very much, Cameron Oneil
[2017-08-11] MEDS ORDERED: Potassium & Sodium Phosphate PO SCH (10:00)
[2017-08-11 16:10] VITALS: BP 153/92; PULSE 62; TEMP 98; O2SAT 100
== END 2017-08-11 17:46 | disposition home or self-care (01) | DRG 88 ==
LOC: C.ER 13:18 → INTOOBSV 15:33 → C.9E 15:33 → C.9I 21:43 → C.6T 08-09 10:37 → OBSVTOIN 08-10 14:02
PROVIDERS: ADMIT Hospitalist; ATTEND Hospitalist
DX: J44.1 Chronic obstructive pulmonary disease with (acute) exacerbation (principal); I48.91 Unspecified atrial fibrillation; Z99.81 Dependence on supplemental oxygen; E87.6 Hypokalemia; G43.909 Migraine, unspecified, not intractable, without status migrainosus; F17.210 Nicotine dependence, cigarettes, uncomplicated; F32.9 Major depressive disorder, single episode, unspecified; I10 Essential (primary) hypertension; G47.30 Sleep apnea, unspecified; F41.9 Anxiety disorder, unspecified; M17.11 Unilateral primary osteoarthritis, right knee; K21.9 Gastro-esophageal reflux disease without esophagitis; M06.9 Rheumatoid arthritis, unspecified; Z90.49 Acquired absence of other specified parts of digestive tract; Z88.0 Allergy status to penicillin

== ENCOUNTER 2017-10-11 16:40 | Emergency (ER) | payer MEDICAID ==
[2017-10-11 16:40] VITALS: BMI 44.5
--- NOTE | 2017-10-11 17:45 | C.PDOC ---
History Of Present Illness 56-YEAR-OLD FEMALE, PRESENTS TO THE EMERGENCY DEPARTMENT WITH COMPLAINTS OF ASTHMA EXACERBATION, R CHEST WALL PAIN X 2 WEEKS. WORSENING. NO IMPROVEMENT W HOME MEDS. REFERRED FROM PAIN MGMT TO ER FOR EVAL. PMD M ANDREINA EXAM NOTED TO BE SPEAKING FULL SENTENCES ON PHONE WO DIFF HEENT NEG LUNGS CTA B/L NO W/R/R PT INDUCES OCC UPPER AIRWAY SQUEAKING BUT RESOLVES WHEN IN FULL CONVERSATION REMAINDER NEG Time Seen by Provider: 10/11/17 17:30 Chief Complaint (Nursing): Shortness Of Breath History Per: Patient History/Exam Limitations: no limitations Onset/Duration Of Symptoms: Days Current Symptoms Are (Timing): Still Present Past Medical History Reviewed: Historical Data, Nursing Documentation, Vital Signs Vital Signs: Last Vital Signs Temp 97.9 F 10/11/17 17:01 Pulse 92 H 10/11/17 17:01 Resp 20 10/11/17 18:36 BP 134/84 10/11/17 17:01 Pulse Ox 96 10/11/17 18:54 - Medical History PMH: Anemia, Anxiety, Arthritis (R-L knee.), Asthma, Atrial Fibrillation, Bronchitis, Cardia Arrhythmia, COPD, Depression, Diverticulitis, Gastritis ( ulcer), GERD, HTN, Migraine, Pneumonia, Rheumatoid Arthritis Surgical History: Cholecystectomy, (x3) - [facility] COLONOSCOPY (01/14/15) IMMOBILIZ/WOUND ATTN NEC (09/22/13) INJECT/INFUSE NEC (03/22/14) INTRODUCE OF OTH THERAP SUBST INTO RESP TRACT, VIA OPENING (12/28/15) NEBULIZER THERAPY (01/18/14) Family History: States: No Known Family Hx - Social History Hx Tobacco Use: Yes Hx Alcohol Use: No Hx Substance Use: No - Immunization History Hx Tetanus Toxoid Vaccination: Yes Hx Influenza Vaccination: Yes Hx Pneumococcal Vaccination: Yes Review Of Systems Except As Marked, All Systems Reviewed And Found Negative. Constitutional: Negative for: Fever, Chills ENT: Negative for: Throat Pain Cardiovascular: Positive for: Chest Pain. Negative for: Palpitations, Edema, Light Headedness Respiratory: Positive for: Shortness of Breath, Wheezing Gastrointestinal: Negative for: Nausea, Vomiting Musculoskeletal: Negative for: Back Pain Neurological: Negative for: Weakness, Numbness, Headache, Dizziness Physical Exam - Physical Exam Appears: Non-toxic, No Acute Distress, Other (NOTED TO BE SPEAKING FULL SENTENCES ON PHONE WO DIFF) Skin: Warm, Dry, No Rash Head: Normacephalic Eye(s): bilateral: PERRL Nose: Normal Oral Mucosa: Moist Lips: Normal Appearing Neck: Normal ROM Chest: Symmetrical Cardiovascular: Rhythm Regular, No Murmur Respiratory: No Decreased Breath Sounds, No Accessory Muscle Use, No Rales, No Rhonchi, No Wheezing, Other ( PT INDUCES OCC UPPER AIRWAY SQUEAKING BUT RESOLVES WHEN IN FULL CONVERSATION) Extremity: Normal ROM Neurological/Psych: Oriented x3, Normal Speech ED Course And Treatment O2 Sat by Pulse Oximetry: 96 Pulse Ox Interpretation: Normal - Radiology CXR: Interpreted by Me CXR Interpretation: Yes: No Acute Disease Disposition - Disposition Disposition Time: 19:00 Condition: STABLE Forms: [facility] ([place]) - Clinical Impression Clinical Impression: Asthma exacerbation, Chest wall pain - Scribe Statement The provider has reviewed the documentation as recorded by the Scribe (Davi Vazquez) All medical record entries made by the Scribe were at my direction and personally dictated by me. I have reviewed the chart and agree that the record accurately reflects my personal performance of the history, physical exam, medical decision making, and the department course for this patient. I have also personally directed, reviewed, and agree with the discharge instructions and disposition. Physician Patient Turnover Patient Signed Over To: Skip Dunaway Handoff Comments: FU LABS, DISPO
[2017-10-11] MEDS: Albuterol-Ipratrop 3 mg / 0.5 (3 ml) UD IH SCH ×3 (18:00→18:30)
[2017-10-11] MEDS ORDERED: Albuterol-Ipratrop 3 mg / 0.5 (3 ml) UD ONE (18:05)
[2017-10-11 19:11] LABS: BASO # 0.1 K/uL (0.0-0.2); BASO % 1.3 % (0.0-2.0); EOS # 0.1 K/uL (0.0-0.7); EOS % 1.1 % (0.0-4.0); HEMOGLOBIN 13.1 g/dL (11.0-16.0); LYMPH # 2.7 K/uL (1.0-4.3); LYMPH % 26.7 % (20.0-40.0); MEAN CELL VOLUME 83.9 fL (81.0-99.0); MEAN CORPUSCULAR HEMOGLOBIN 27.6 pg (27.0-31.0); MEAN CORPUSCULAR HGB CONC 32.8 g/dL (33.0-37.0); MEAN PLATELET VOLUME 9.5 fL (7.2-11.7); MONO # 0.6 K/uL (0.0-0.8); MONO % 5.8 % (0.0-10.0); NEUT # 6.7 K/uL (1.8-7.0); NEUT % 65.1 % (50.0-75.0); NRBC % 0.1 % (0.0-2.0); RBC 4.77 Mil/uL (3.80-5.20); RED CELL DISTRIBUTION WIDTH 14.4 % (11.5-14.5); WHITE BLOOD COUNT 10.3 K/uL (4.8-10.8)
[2017-10-11 19:24] LABS: BLOOD UREA NITROGEN 15 mg/dL (7-17); GFR AFRICAN-AMERICAN > 60; GFR NON-AFRICAN AMERICAN > 60
[2017-10-11 19:25] LABS: ALB/GLOB RATIO 1.4 (1.0-2.1); ALBUMIN 3.9 g/dL (3.5-5.0); ALT/SGPT 30 U/L (9-52); AST/SGOT 21 U/L (14-36); CALCIUM 8.9 mg/dl (8.6-10.4)
[2017-10-11] MEDS ORDERED: Potassium Chloride 10 mEq ER Tab PO STA (19:35)
[2017-10-11] MEDS ORDERED: Potassium Chloride 20 mEq ER Tab PO ONE (19:56)
[2017-10-11] MEDS ORDERED: Potassium Chloride 10 mEq ER Tab PO ONE (19:58)
[2017-10-11 20:27] VITALS: BP 119/78; PULSE 79; RESP 22; TEMP 98.2; O2SAT 95
--- NOTE | 2017-10-12 09:02 | RAD ---
HISTORY: Right-sided chest pain COMPARISON: No prior. TECHNIQUE: Chest PA and lateral FINDINGS: LUNGS: Mild increased/ coarsened interstitial markings with more of reticular nodular appearance in the mid to lower lung zones. Rule out mild reactive/inflammatory airway disease. Rule out viral illness -developing interstitial pneumonia. . PLEURA: No significant pleural effusion identified. No pneumothorax apparent. CARDIOVASCULAR: Normal. OSSEOUS STRUCTURES: No significant abnormalities. VISUALIZED UPPER ABDOMEN: Normal. OTHER FINDINGS: None. IMPRESSION: Mild increased/ coarsened interstitial markings with more of reticular nodular appearance in the mid to lower lung zones. Rule out mild reactive/inflammatory airway disease. Rule out viral illness -developing interstitial pneumonia. .
--- NOTE | 2017-10-13 12:34 | CARD ---
APPROVED REPORT EKG Measurement Heart [id number] <Conclusion> Normal sinus rhythm Prolonged QT Abnormal ECG
== END 2017-10-11 21:14 | disposition home or self-care (01) ==
LOC: C.ER 16:40
DX: J45.901 Unspecified asthma with (acute) exacerbation (principal); R07.89 Other chest pain; E87.6 Hypokalemia
CPT/HCPCS: 71046; 80053; 85025; 94640; 96372; 99284; J1885